=== PATIENT | female | born 1945 | race Caucasian/White ===

== ENCOUNTER 2017-10-22 12:27 | Emergency (ER) | payer MEDICARE ==
[~2017-10-22] VITALS: Ht 170.1 cm; Wt 130.6 kg
[~2017-10-22 12:27] MED LIST: ACETAMINOPHEN500 MG PO; AMLODIPINE BESYL5 MG PO; ASPIRIN81 M1 PO; ATIVAN0.5 MG PO; AZOR 5 MG-40 MG1 TAB PO; BACTROBAN2% TP; CIPROFLOXACIN500 MG PO; COMPAZINE SR10 MG PO; COUMADIN2 M1 PO; DICYCLOMINE HCL10 MG PO; DICYCLOMINE HYD10 MG PO; FAMOTIDINE40 MG PO; GLIPIZIDE5 M1 PO; GLIPIZIDE5 MG PO; LOMOTIL 0.025 M1 TA1 PO; LOMOTIL 0.025 M1 TAB PO; LOSARTAN POTAS100 M1 PO; LOVASTATIN20 MG PO; LYRICA75 MG PO; METANX 2.8 MG-21 TA1 PO; NEURONTIN300 MG PO; PANTOPRAZOLE SO40 MG PO; PERCOCET 325 MG1 TA2 PO; PREPLUS CA-FE1 EACH PO; PRILOSEC20 MG PO; PRILOSEC40 M1 PO; SYMBICORT1 AE1 INH; VICODIN ES 7501 TA1 PO; VITAMIN B125000 MCG SL; ZOFRAN4 MG PO
[2017-10-22] MEDS ORDERED: NORCO 10-325 T1 EACH PO (14:55)
== END 2017-10-22 15:00 | disposition home or self-care (01) ==
LOC: ED 12:27
DX: S92.414A Nondisplaced fracture of proximal phalanx of right great toe, initial encounter for closed fracture (principal); S82.64XA Nondisplaced fracture of lateral malleolus of right fibula, initial encounter for closed fracture; Z88.0 Allergy status to penicillin; Z88.1 Allergy status to other antibiotic agents; Z88.8 Allergy status to other drugs, medicaments and biological substances; Z79.899 Other long term (current) drug therapy; Z79.82 Long term (current) use of aspirin; W01.198A Fall on same level from slipping, tripping and stumbling with subsequent striking against other object, initial encounter; Y93.89 Activity, other specified; Y92.89 Other specified places as the place of occurrence of the external cause; Y99.8 Other external cause status

== ENCOUNTER → 2017-10-26 | Outpatient (CLI) | payer MEDICARE ==
[~2017-10-26] MED LIST changes: +NORCO 10-325 T1 EACH PO
== END | disposition home or self-care (01) ==
LOC: CANPRECLI → ORTHO 02:07
DX: M89.8X6 Other specified disorders of bone, lower leg (principal)

== ENCOUNTER → 2017-11-10 | Outpatient (CLI) | payer MEDICARE | END | disposition home or self-care (01) | LOC: ORTHO 01:28 | DX: S82.831D Other fracture of upper and lower end of right fibula, subsequent encounter for closed fracture with routine healing (principal); S92.491D Other fracture of right great toe, subsequent encounter for fracture with routine healing; X58.XXXD Exposure to other specified factors, subsequent encounter ==

== ENCOUNTER 2017-12-02 19:40 | Emergency (ER) | payer MEDICARE ==
[~2017-12-02] VITALS: Ht 170.1 cm; Wt 130.6 kg
[2017-12-02] MEDS ORDERED: VITAMIN D5000 UNI1 PO (20:02)
== END 2017-12-02 23:39 | disposition home or self-care (01) ==
LOC: ED 19:40
DX: R22.41 Localized swelling, mass and lump, right lower limb (principal); M79.89 Other specified soft tissue disorders; Z98.890 Other specified postprocedural states; Z79.899 Other long term (current) drug therapy; Z79.82 Long term (current) use of aspirin; Z88.8 Allergy status to other drugs, medicaments and biological substances; Z88.0 Allergy status to penicillin; Z88.6 Allergy status to analgesic agent; Z88.1 Allergy status to other antibiotic agents

== ENCOUNTER → 2017-12-09 | Outpatient (CLI) | payer MEDICARE ==
[~2017-12-09] MED LIST changes: +VITAMIN D5000 UNI1 PO
== END | disposition home or self-care (01) ==
LOC: ORTHO 04:30
DX: S82.831D Other fracture of upper and lower end of right fibula, subsequent encounter for closed fracture with routine healing (principal); M25.871 Other specified joint disorders, right ankle and foot; X58.XXXD Exposure to other specified factors, subsequent encounter

== ENCOUNTER → 2018-01-07 | Outpatient (CLI) | payer MEDICARE | END | disposition home or self-care (01) | LOC: ORTHO 01:38 | DX: Z47.89 Encounter for other orthopedic aftercare (principal); S82.491D Other fracture of shaft of right fibula, subsequent encounter for closed fracture with routine healing; X58.XXXD Exposure to other specified factors, subsequent encounter ==

== ENCOUNTER → 2018-02-18 | Outpatient (CLI) | payer MEDICARE | END | disposition home or self-care (01) | LOC: RAD 11:21 | DX: Z47.89 Encounter for other orthopedic aftercare (principal); S92.411D Displaced fracture of proximal phalanx of right great toe, subsequent encounter for fracture with routine healing; X58.XXXD Exposure to other specified factors, subsequent encounter; Z91.81 History of falling ==

== ENCOUNTER → 2018-05-02 | Outpatient (CLI) | payer MEDICARE | END | disposition home or self-care (01) | LOC: RAD 13:00 | DX: Z13.820 Encounter for screening for osteoporosis (principal); E55.9 Vitamin D deficiency, unspecified; K58.9 Irritable bowel syndrome, unspecified; Z78.0 Asymptomatic menopausal state ==

== ENCOUNTER → 2018-09-07 | Outpatient (CLI) | payer MEDICARE | END | disposition home or self-care (01) | LOC: CARD 09:28 | DX: R01.1 Cardiac murmur, unspecified (principal) ==

== ENCOUNTER 2019-10-31 15:43 | Inpatient (IN) | payer MEDICARE ==
[~2019-10-31] VITALS: Ht 162.6 cm; Wt 127.5 kg
[~2019-10-31 15:43] MED LIST changes: -CENTRUM SILVER1 EAC1 PO; -COZAAR100 MG PO; -DOXYCYCLINE100 M3 PO; -FISH OIL 1,0001 EAC4 PO; -HYDROXYCHLOROQ200 M1 PO; -NORVASC10 MG PO; -SYMB160 INH; -TAMIFLU 75MG CA75 MG PO; -VENT7GM INH
[2019-10-31 15:51] VITALS: BP 151/58
[2019-10-31 16:48] LABS: BASO % 0.5 % (0.0-1.0); EOS % 0.5 % (1.0-4.0); HEMATOCRIT 42.7 % (37.0-47.0); LYMPH # 1.7 10*3/uL (1.3-4.4); LYMPH % 20.4 % (27.0-41.0); MEAN CELL VOLUME 95.1 fl (81.0-99.0); MEAN CORPUSCULAR HGB 31.2 pg (27.0-31.0); MEAN CORPUSCULAR HGB CONC 32.8 g/dl (33.0-37.0); MEAN PLATELET VOLUME 10.1 fl (9.6-12.3); MONO # 1.1 10*3/uL (0.1-1.0); NEUT # 5.5 10*3/uL (2.3-7.9); NEUT % 65.5 % (47.0-73.0); PLATELET COUNT AUTOMATED 268 10*3/uL (130-400); RED BLOOD COUNT 4.49 10*6/uL (4.10-5.10); RED CELL DISTRI WIDTH 14.7 % (0-14.5); WHITE BLOOD COUNT 8.4 10*3/uL (4.8-10.8)
[2019-10-31 16:57] LABS: ACT PARTIAL THROMBO TIME 22.8 SECONDS (20.0-32.1)
[2019-10-31 17:05] LABS: ALBUMIN 3.1 gm/dl (3.1-4.5); ALKALINE PHOSPHATASE 102 U/L (45-117); BUN 17 mg/dl (7-24); CHLORIDE 103 mmol/L (98-107); POTASSIUM 4.2 mmol/L (3.5-5.1); SGOT/AST 15 IU/L (3-35); SGPT/ALT 19 U/L (12-78); SODIUM 137 mmol/L (136-145); TOTAL PROTEIN 7.5 gm/dL (6.4-8.2); TROPONIN I < 0.015 ng/ml (<0.045)
--- NOTE | 2019-10-31 18:24 | NUR ---
AWAITING TO HAVE CT SCAN BEFORE ADMISSION TO FLOOR
--- NOTE | 2019-10-31 18:56 | NUR ---
PT AT THIS TIME STATES SHE FEELS TIRED PT IS NO LONGER NAUSEATED AFTER CONSUMING SMALL AMOUNT OF CHICKEN BROTH PT STATES STILL HAS PAIN BEHIND EYES ESPECIALLY UPON COUGH AND CHEST DISCOMFORT
[2019-10-31 19:49] VITALS: BP 156/51
--- NOTE | 2019-10-31 19:50 | NUR ---
REPORT RECEIVED FROM DEB. PT TO BE ADMITTED UPSTAIRS TO ROOM 508--RALF GARCIA RN
--- NOTE | 2019-10-31 20:13 | NUR ---
PT TRANSFERRED TO 5TH FLOOR VIA FLOAT NURSE ELICIA.PT MAINTAINED IN RESP PRECAUTIONS.---RALF GARCIA RN
[2019-10-31 20:15] VITALS: BP 164/58
--- NOTE | 2019-10-31 20:15 | NUR ---
A 74, admitted to 5E, under the services of ROSALIND Carter DO with a diagnosis of SEPSIS, PNUEMONIA, SWELLING OF THIGH. Chief complaint is RESPIRATORY ILLNESS. Patient arrived via stretcher from ER. Monitor applied. Initial assessment completed. Vital signs taken and recorded. ROSALIND CARTER DO notified of admission to the unit. Orders received. See assessment for past medical history, medications and allergies. Patient and/or family oriented to unit. visitation policy reviewed. Clothing/patient valuable form completed. LENIN GIRON
[2019-10-31] MEDS ORDERED: COZAAR100 MG PO (20:58)
[2019-10-31] MEDS ORDERED: FISH OIL 1,0001 EAC4 PO (20:58)
[2019-10-31] MEDS ORDERED: CENTRUM SILVER1 EAC1 PO (20:59)
[2019-10-31] MEDS ORDERED: SYMB160 INH (20:59)
[2019-10-31] MEDS ORDERED: NORVASC10 MG PO (20:59)
[2019-11-01] VITALS: BP 112/68
[2019-11-01 06:50] LABS: BASO % 0.5 % (0.0-1.0); EOS # 0.1 10*3/uL (0.0-0.4); EOS % 0.8 % (1.0-4.0); HEMATOCRIT 40.2 % (37.0-47.0); LYMPH # 1.2 10*3/uL (1.3-4.4); LYMPH % 16.1 % (27.0-41.0); MEAN CELL VOLUME 96.2 fl (81.0-99.0); MEAN CORPUSCULAR HGB 30.9 pg (27.0-31.0); MEAN CORPUSCULAR HGB CONC 32.1 g/dl (33.0-37.0); MEAN PLATELET VOLUME 10.5 fl (9.6-12.3); MONO % 12.9 % (3.0-9.0); NEUT # 5.3 10*3/uL (2.3-7.9); NEUT % 69.4 % (47.0-73.0); PLATELET COUNT AUTOMATED 223 10*3/uL (130-400); RED BLOOD COUNT 4.18 10*6/uL (4.10-5.10); RED CELL DISTRI WIDTH 14.6 % (0-14.5); WHITE BLOOD COUNT 7.7 10*3/uL (4.8-10.8)
[2019-11-01 07:27] LABS: ALBUMIN 2.6 gm/dl (3.1-4.5); ALKALINE PHOSPHATASE 86 U/L (45-117); BUN 13 mg/dl (7-24); CHLORIDE 103 mmol/L (98-107); CHOLESTEROL 121 mg/dL (<200); CREATININE 0.73 mg/dL (0.55-1.02); HDL CHOLESTEROL 56 mg/dl (40-60); LDL CHOLESTEROL 51 mg/dL (9-159); POTASSIUM 3.9 mmol/L (3.5-5.1); SGOT/AST 10 IU/L (3-35); SGPT/ALT 17 U/L (12-78); SODIUM 135 mmol/L (136-145); TOTAL PROTEIN 6.6 gm/dL (6.4-8.2); TRIGLYCERIDES 69 mg/dl (<150); VLDL CHOLESTEROL 14 mg/dL (6-40)
--- NOTE | 2019-11-01 07:43 | NUR ---
24 HR. CHART CHECK COMPLETE.
[2019-11-01 08:00] VITALS: BP 126/54
--- NOTE | 2019-11-01 08:40 | NUR ---
SPEECH PATHOLOGY Nursing screen completed. Patient admitted with sepsis and pneumonia. There are no reports of dysphagia however this dept. will be available should future needs arise. FLACA REGALADO [facility] DOT[facility]
--- NOTE | 2019-11-01 10:49 | NUR ---
Roll Winder in to talk to patient. Patient states lives at HOME with . There are 2 steps in the home. Physician: Unique SARAH [facility] Home health services: NONE Patient's level of ADLs: INDEPENDENT Patient has working utilities: YES DME: NONE AT THIS TIME, STATES SHE USED TO HAVE O2 FOR NIGHT BUT DOES NOT HAVE IT NOW Follow-up physician's appointment after d/c: WILL BE MADE BY HOSPITALIST NURSE DIRECTOR ON DISCHARGE Does patient want to access PORTAL?: NO Discharge plan PT STATES SHE LIVES AT HOME WITH HER AND IS INDEPENDENT IN HER CARE. DENIES SHE WILL HAVE ANY NEEDS WHEN DISCHARGED. PT PLANS TO RETURN HOME WHEN MEDICALLY STABLE. WILL CONTINUE TO FOLLOW. PT STATES WILL TAKE HER HOME WHEN DISCHARGED. . FUAD MALCOLM
[2019-11-01 12:00] VITALS: BP 127/52
[2019-11-01 16:00] VITALS: BP 125/46
[2019-11-01 20:00] VITALS: BP 136/55
--- NOTE | 2019-11-01 20:23 | NUR ---
PT MEDICATED WITH PRN TYLENOL FOR TEMP OF 101.0. WILL RECHECK. PT RELAXING IN BED. RESPS EASY AND REGULAR. 3L O2 IN PLACE. NO COMPLAINTS. ASSESSMENT COMPLETE. CALL LIGHT IN REACH. WILL CONTINUE TO MONITOR.
--- NOTE | 2019-11-01 22:00 | NUR ---
WENT INTO PTS ROOM TO TEST HER FOR THE FLU PER . PT STATED THAT SHE WAS ALREADY TESTED FOR THE FLU IN THE ER.
[2019-11-02] VITALS: BP 123/56
--- NOTE | 2019-11-02 | NUR ---
CHECKED AND PT WAS NOT TESTED FOR THE FLU. WILL TEST PT FOR FLU IN AM.
--- NOTE | 2019-11-02 03:39 | NUR ---
PT SLEEPING PER SURVEILLANCE CAMERA.
--- NOTE | 2019-11-02 03:40 | NUR ---
24 HR chart check completed.
[2019-11-02 08:00] VITALS: BP 126/70
--- NOTE | 2019-11-02 09:00 | NUR ---
PT RESTING IN BED. RESP-EASY AND REGULAR. TOLERATED ROUTINE MED WITH NO PROBLEM. PT REQUESTING LOZENGER, MEDICATED WITH CEPACOL PO, SEE EMAR. CALL LIGHT IN REACH. SEE SHIFT ASSESSMENT.
--- NOTE | 2019-11-02 10:32 | NUR ---
[facility] DOES NOT TAKE PT INSURANCE, CALLED AND THEY DO TAKE INSURANCE BUT STATE THEY ARE UNABLE TO TAKE PT UNTIL HIS COVID-19 RESULTS ARE BACK DUE TO SHORTAGE OF PPE. CALLED [facility] AND LEFT MESSAGE FOR THEM TO CALL ME BACK. WAITING FOR RETURN CALL.
--- NOTE | 2019-11-02 11:08 | NUR ---
[facility] CALLED BACK AND STATES IF PT MEETS [facility] FOR ADMISSION THEY WOULD BE ABLE TO SEE PT. REFERRAL FAXED TO [facility].
--- NOTE | 2019-11-02 12:45 | NUR ---
PT WAS ASSESSED FOR HOME OXYGEN. PT QUALIFIED PT AT REST SPO2 94% RA, HR 84, RR 18, B/P 123/56 PT AMBULATED SPO2 87-88% RA PLACED PT ON 2LNC, SPO2 88-89% INCREASED TO 33NC AT REST SPO2 90-91% 3LNC RN NOTIFIED NOTIFIED
--- NOTE | 2019-11-02 13:50 | NUR ---
DR. ESPINOSA CALLED ORDER TAKEN AND REVIEWED.
[2019-11-02] MEDS ORDERED: TAMIFLU 75MG CA75 MG PO (13:52)
[2019-11-02] MEDS ORDERED: VENT7GM INH (13:52)
[2019-11-02] MEDS ORDERED: DOXYCYCLINE100 M3 PO (13:52)
[2019-11-02] MEDS ORDERED: HYDROXYCHLOROQ200 M1 PO (13:53)
--- NOTE | 2019-11-02 15:29 | NUR ---
PHYSICAL THERAPY Screen recieved on 11/01/19. Spoke nsg supervisor multifocal lens Chirag fontana and sherrell on 5th floor and per discussion at this time to defer any PT/therapy intervention due to monitoring for COVID-19, thank you. Roseann Koenig PT
--- NOTE | 2019-11-02 15:30 | NUR ---
Nursing screen received on 10/31/2019. OTR spoke with nursing supervisor cooler service, Chirag, about nursing screens and evaluations on the fifth floor. Per discussion, at this time defer OT/therapy intervention due to monitoring for COVID-19. Thank you. Allie Aldridge, OTR/L
--- NOTE | 2019-11-02 18:25 | NUR ---
Discharge instructions reviewed with patient/family. Patient receptive and verbalizes understanding. Follow-up care arranged. Written instructions given to patient/family. HEPLOCK REMOVED 2X2 APPLIED. MONITOR REMOVED. ESCORTED VIA WHEELCHAIR FOR DISCHARGE. DELTA COHEN
== END 2019-11-02 18:25 | disposition home or self-care (01) | DRG 871 ==
LOC: ED 15:43 → EDHOLD 16:58 → 5E 16:58 → EDHOLD 17:12 → 5E 18:45
PROVIDERS: Physician Assistant; Student in an Organized Health Care Education/Training Program; ADMIT Family Medicine
DX: A41.9 Sepsis, unspecified organism (principal); E43 Unspecified severe protein-calorie malnutrition; J12.9 Viral pneumonia, unspecified; E87.1 Hypo-osmolality and hyponatremia; Z68.41 Body mass index [BMI] 40.0-44.9, adult; B34.9 Viral infection, unspecified; R19.7 Diarrhea, unspecified; E78.5 Hyperlipidemia, unspecified; E11.40 Type 2 diabetes mellitus with diabetic neuropathy, unspecified; E53.8 Deficiency of other specified B group vitamins; E11.42 Type 2 diabetes mellitus with diabetic polyneuropathy; K21.9 Gastro-esophageal reflux disease without esophagitis; Z85.118 Personal history of other malignant neoplasm of bronchus and lung; Z88.0 Allergy status to penicillin; Z88.1 Allergy status to other antibiotic agents; Z88.8 Allergy status to other drugs, medicaments and biological substances; Z79.899 Other long term (current) drug therapy; Z79.82 Long term (current) use of aspirin; Z20.828 Contact with and (suspected) exposure to other viral communicable diseases

== ENCOUNTER → 2019-10-31 | Outpatient (CLI) | payer MEDICARE ==
[~2019-10-31] MED LIST changes: +CENTRUM SILVER1 EAC1 PO; +COZAAR100 MG PO; +DOXYCYCLINE100 M3 PO; +FISH OIL 1,0001 EAC4 PO; +HYDROXYCHLOROQ200 M1 PO; +NORVASC10 MG PO; +SYMB160 INH; +TAMIFLU 75MG CA75 MG PO; +VENT7GM INH
== END | disposition home or self-care (01) ==
LOC: RESCLI 14:12
DX: R06.02 Shortness of breath (principal); E78.00 Pure hypercholesterolemia, unspecified; Z85.118 Personal history of other malignant neoplasm of bronchus and lung; Z98.890 Other specified postprocedural states; Z79.899 Other long term (current) drug therapy

== ENCOUNTER → 2020-02-26 | Outpatient (CLI) | payer MEDICARE ==
[~2020-02-26] MED LIST changes: +CENTRUM SILVER1 EAC1 PO; +COZAAR100 MG PO; +DOXYCYCLINE100 M3 PO; +FISH OIL 1,0001 EAC4 PO; +HYDROXYCHLOROQ200 M1 PO; +NORVASC10 MG PO; +SYMB160 INH; +TAMIFLU 75MG CA75 MG PO; +VENT7GM INH
== END | disposition home or self-care (01) ==
LOC: RESCLI 03:11
DX: E11.65 Type 2 diabetes mellitus with hyperglycemia (principal); I71.4 Abdominal aortic aneurysm, without rupture; I10 Essential (primary) hypertension; J44.9 Chronic obstructive pulmonary disease, unspecified; E55.9 Vitamin D deficiency, unspecified; E78.5 Hyperlipidemia, unspecified; M81.0 Age-related osteoporosis without current pathological fracture; E78.00 Pure hypercholesterolemia, unspecified; Z79.4 Long term (current) use of insulin; Z79.899 Other long term (current) drug therapy; Z79.82 Long term (current) use of aspirin; Z85.118 Personal history of other malignant neoplasm of bronchus and lung; Z95.828 Presence of other vascular implants and grafts; Z98.890 Other specified postprocedural states; Z88.8 Allergy status to other drugs, medicaments and biological substances

== ENCOUNTER → 2020-07-15 | Outpatient (CLI) | payer MEDICARE ==
[2020-07-15 17:58] LABS: BASO # 0.1 10*3/uL (0.0-0.1); BASO % 0.6 % (0.0-1.0); EOS # 0.2 10*3/uL (0.0-0.4); EOS % 2.2 % (1.0-4.0); LYMPH # 2.8 10*3/uL (1.3-4.4); LYMPH % 34.2 % (27.0-41.0); MEAN CELL VOLUME 94.8 fl (81.0-99.0); MEAN CORPUSCULAR HGB 30.6 pg (27.0-31.0); MEAN CORPUSCULAR HGB CONC 32.3 g/dl (33.0-37.0); MEAN PLATELET VOLUME 9.6 fl (9.6-12.3); MONO # 0.9 10*3/uL (0.1-1.0); MONO % 10.9 % (3.0-9.0); NEUT # 4.2 10*3/uL (2.3-7.9); PLATELET COUNT AUTOMATED 269 10*3/uL (130-400); RED BLOOD COUNT 4.64 10*6/uL (4.10-5.10); RED CELL DISTRI WIDTH 14.8 % (0-14.5); WHITE BLOOD COUNT 8.1 10*3/uL (4.8-10.8)
[2020-07-17 00:06] LABS: B PERTUSSIS IGA AB 1.3 index (0.0-0.9); B PERTUSSIS IGG AB <0.95 index (0.00-0.94); B PERTUSSIS IGM AB <1.0 index (0.0-0.9)
== END | disposition home or self-care (01) ==
LOC: LAB 16:54 → COVID19 16:54
PROVIDERS: ATTEND Nurse Practitioner Primary Care
DX: J44.1 Chronic obstructive pulmonary disease with (acute) exacerbation (principal); R05 Cough; R06.02 Shortness of breath; Z20.828 Contact with and (suspected) exposure to other viral communicable diseases

== ENCOUNTER → 2020-12-04 | Outpatient (CLI) | payer MEDICARE ==
[2020-12-04 14:28] LABS: BUN 21 mg/dl (7-24); CHLORIDE 105 mmol/L (98-107); CHOLESTEROL 193 mg/dL (<200); CREATININE 0.89 mg/dL (0.55-1.02); HDL CHOLESTEROL 65 mg/dl (40-60); LDL CHOLESTEROL 96 mg/dL (9-159); POTASSIUM 4.4 mmol/L (3.5-5.1); SODIUM 136 mmol/L (136-145); TRIGLYCERIDES 160 mg/dl (<150); VLDL CHOLESTEROL 32 mg/dL (6-40)
== END | disposition home or self-care (01) ==
LOC: LAB 12:46
PROVIDERS: ATTEND Nurse Practitioner Primary Care
DX: M17.11 Unilateral primary osteoarthritis, right knee (principal); E11.65 Type 2 diabetes mellitus with hyperglycemia; M76.51 Patellar tendinitis, right knee; M25.861 Other specified joint disorders, right knee

== ENCOUNTER 2020-12-29 10:19 | Emergency (ER) | payer MEDICARE ==
[~2020-12-29] VITALS: Wt 127.9 kg
[2020-12-29] MEDS ORDERED: TYLENOL325 M1 PO (10:41)
[2020-12-29] MEDS ORDERED: CLINDAMYCIN HC300 MG PO (10:41)
== END 2020-12-29 11:43 | disposition home or self-care (01) ==
LOC: ED 10:19
DX: K02.9 Dental caries, unspecified (principal); K21.9 Gastro-esophageal reflux disease without esophagitis; E78.5 Hyperlipidemia, unspecified; E11.40 Type 2 diabetes mellitus with diabetic neuropathy, unspecified; Z88.1 Allergy status to other antibiotic agents; Z88.0 Allergy status to penicillin; Z88.8 Allergy status to other drugs, medicaments and biological substances; Z79.899 Other long term (current) drug therapy; Z79.2 Long term (current) use of antibiotics; Z79.82 Long term (current) use of aspirin; Z85.118 Personal history of other malignant neoplasm of bronchus and lung

== ENCOUNTER → 2021-02-26 | Outpatient (CLI) | payer MEDICARE ==
[~2021-02-26] MED LIST changes: +CLINDAMYCIN HC300 MG PO; +TYLENOL325 M1 PO
== END | disposition home or self-care (01) ==
LOC: US 10:10
PROVIDERS: ATTEND Orthopaedic Surgery
DX: M71.21 Synovial cyst of popliteal space [Baker], right knee (principal); M79.661 Pain in right lower leg

== ENCOUNTER → 2021-06-23 | Outpatient (CLI) | payer MEDICARE | END | disposition home or self-care (01) | LOC: RAD 06-19 13:30 | PROVIDERS: ATTEND Nurse Practitioner Primary Care | DX: M85.851 Other specified disorders of bone density and structure, right thigh (principal); Z78.0 Asymptomatic menopausal state ==

== ENCOUNTER → 2021-09-05 | Outpatient (CLI) | payer MEDICARE | END | disposition home or self-care (01) | LOC: US 07:19 | PROVIDERS: ATTEND Nurse Practitioner Family | DX: R10.31 Right lower quadrant pain (principal); Z86.718 Personal history of other venous thrombosis and embolism ==

== ENCOUNTER → 2021-09-23 | Outpatient (CLI) | payer MEDICARE ==
[2021-09-23 10:19] LABS: BUN 26 mg/dl (7-24); CHLORIDE 104 mmol/L (98-107); CREATININE 1.06 mg/dL (0.55-1.02); POTASSIUM 4.1 mmol/L (3.5-5.1); SODIUM 136 mmol/L (136-145)
== END | disposition home or self-care (01) ==
LOC: LAB 09:09
PROVIDERS: ATTEND Nurse Practitioner Primary Care
DX: I10 Essential (primary) hypertension (principal)

== ENCOUNTER → 2021-09-29 | Outpatient (CLI) | payer MEDICARE | END | disposition home or self-care (01) | LOC: CT 09-24 00:14 | PROVIDERS: ATTEND Nurse Practitioner Primary Care | DX: K42.9 Umbilical hernia without obstruction or gangrene (principal); J98.11 Atelectasis; I70.0 Atherosclerosis of aorta ==

== ENCOUNTER → 2021-10-03 | Outpatient (CLI) | payer MEDICARE | END | disposition home or self-care (01) | LOC: RAD 13:30 | PROVIDERS: ATTEND Nurse Practitioner Primary Care | DX: M54.41 Lumbago with sciatica, right side (principal); M25.551 Pain in right hip; G89.29 Other chronic pain ==

== ENCOUNTER → 2021-12-12 | Outpatient (CLI) | payer MEDICARE | END | disposition home or self-care (01) | LOC: CT 14:00 | PROVIDERS: ATTEND Nurse Practitioner Primary Care | DX: C34.92 Malignant neoplasm of unspecified part of left bronchus or lung (principal); I25.10 Atherosclerotic heart disease of native coronary artery without angina pectoris; J43.9 Emphysema, unspecified ==

== ENCOUNTER → 2022-03-25 | Outpatient (CLI) | payer MEDICARE | END | disposition home or self-care (01) | LOC: CARD 08:30 | PROVIDERS: ATTEND Physician Assistant | DX: I35.8 Other nonrheumatic aortic valve disorders (principal) ==

== ENCOUNTER → 2022-04-22 | Outpatient (CLI) | payer MEDICARE ==
[~2022-04-22] MED LIST changes: +CALCIUM 600+D1 EAC4 PO; +JANUVIA25 MG PO
== END | disposition home or self-care (01) ==
LOC: CARD 04:24
PROVIDERS: ATTEND Internal Medicine Cardiovascular Disease
DX: R07.2 Precordial pain (principal); R06.00 Dyspnea, unspecified; R42 Dizziness and giddiness

== ENCOUNTER 2022-05-08 22:47 | Emergency (ER) | payer MEDICARE ==
[~2022-05-08 22:47] MED LIST changes: +XARE15TA PO; +XARELTO20 M1 PO
== END 2022-05-09 01:03 | disposition home or self-care (01) ==
LOC: ED 22:47
DX: M79.89 Other specified soft tissue disorders (principal); M79.604 Pain in right leg; L53.9 Erythematous condition, unspecified; E66.9 Obesity, unspecified; Z86.718 Personal history of other venous thrombosis and embolism; Z88.1 Allergy status to other antibiotic agents; Z88.0 Allergy status to penicillin; Z88.8 Allergy status to other drugs, medicaments and biological substances; Z79.899 Other long term (current) drug therapy; Z98.61 Coronary angioplasty status; Z87.891 Personal history of nicotine dependence; Z68.30 Body mass index [BMI] 30.0-30.9, adult

== ENCOUNTER → 2022-06-15 | Outpatient (CLI) | payer MEDICARE | END | disposition home or self-care (01) | LOC: RESCLI 02:36 | PROVIDERS: ATTEND Internal Medicine | DX: E11.40 Type 2 diabetes mellitus with diabetic neuropathy, unspecified (principal); I25.10 Atherosclerotic heart disease of native coronary artery without angina pectoris; E78.00 Pure hypercholesterolemia, unspecified; E78.5 Hyperlipidemia, unspecified; J44.9 Chronic obstructive pulmonary disease, unspecified; M54.31 Sciatica, right side; I82.431 Acute embolism and thrombosis of right popliteal vein; E66.01 Morbid (severe) obesity due to excess calories; E03.9 Hypothyroidism, unspecified; M17.11 Unilateral primary osteoarthritis, right knee; G89.29 Other chronic pain; J44.1 Chronic obstructive pulmonary disease with (acute) exacerbation; E55.9 Vitamin D deficiency, unspecified; E11.9 Type 2 diabetes mellitus without complications; I10 Essential (primary) hypertension; G47.33 Obstructive sleep apnea (adult) (pediatric); Z82.49 Family history of ischemic heart disease and other diseases of the circulatory system; Z87.891 Personal history of nicotine dependence; Z88.1 Allergy status to other antibiotic agents; Z88.8 Allergy status to other drugs, medicaments and biological substances; Z98.890 Other specified postprocedural states; Z79.01 Long term (current) use of anticoagulants; Z79.899 Other long term (current) drug therapy ==

== ENCOUNTER → 2022-11-17 | Outpatient (CLI) | payer MEDICARE | END | disposition home or self-care (01) | LOC: RESCLI 01:40 | PROVIDERS: ATTEND Family Medicine | DX: I12.9 Hypertensive chronic kidney disease with stage 1 through stage 4 chronic kidney disease, or unspecified chronic kidney disease (principal); E11.22 Type 2 diabetes mellitus with diabetic chronic kidney disease; N18.9 Chronic kidney disease, unspecified; C34.90 Malignant neoplasm of unspecified part of unspecified bronchus or lung; E55.9 Vitamin D deficiency, unspecified; E03.9 Hypothyroidism, unspecified; G89.29 Other chronic pain; J44.9 Chronic obstructive pulmonary disease, unspecified; I82.431 Acute embolism and thrombosis of right popliteal vein; M54.31 Sciatica, right side; E11.40 Type 2 diabetes mellitus with diabetic neuropathy, unspecified; G47.33 Obstructive sleep apnea (adult) (pediatric); I73.9 Peripheral vascular disease, unspecified; I25.10 Atherosclerotic heart disease of native coronary artery without angina pectoris; E78.5 Hyperlipidemia, unspecified; E78.00 Pure hypercholesterolemia, unspecified; M19.90 Unspecified osteoarthritis, unspecified site; Z79.899 Other long term (current) drug therapy; Z88.8 Allergy status to other drugs, medicaments and biological substances; Z88.0 Allergy status to penicillin ==

== ENCOUNTER 2022-11-30 19:16 | Emergency (ER) | payer MEDICARE ==
[~2022-11-30] VITALS: Ht 165.1 cm; Wt 127.0 kg
== END 2022-11-30 21:00 | disposition home or self-care (01) ==
LOC: ED 19:16
DX: M25.532 Pain in left wrist (principal); I10 Essential (primary) hypertension; F41.9 Anxiety disorder, unspecified; F32.A Depression, unspecified; Z86.73 Personal history of transient ischemic attack (TIA), and cerebral infarction without residual deficits; E78.00 Pure hypercholesterolemia, unspecified; Z88.0 Allergy status to penicillin; Z88.1 Allergy status to other antibiotic agents; Z88.8 Allergy status to other drugs, medicaments and biological substances; Z98.890 Other specified postprocedural states; Z87.891 Personal history of nicotine dependence

== ENCOUNTER → 2022-12-23 | Outpatient (CLI) | payer MEDICARE | END | disposition home or self-care (01) | LOC: CT 12-22 10:00 | PROVIDERS: ATTEND Physician Assistant | DX: Z12.2 Encounter for screening for malignant neoplasm of respiratory organs (principal); J43.2 Centrilobular emphysema; I25.10 Atherosclerotic heart disease of native coronary artery without angina pectoris; I34.81 Nonrheumatic mitral (valve) annulus calcification; F17.211 Nicotine dependence, cigarettes, in remission ==

== ENCOUNTER → 2023-04-21 | Outpatient (CLI) | payer MEDICARE | END | disposition home or self-care (01) | LOC: RESCLI 09:57 | PROVIDERS: ATTEND Student in an Organized Health Care Education/Training Program | DX: I12.9 Hypertensive chronic kidney disease with stage 1 through stage 4 chronic kidney disease, or unspecified chronic kidney disease (principal); E11.22 Type 2 diabetes mellitus with diabetic chronic kidney disease; N18.9 Chronic kidney disease, unspecified; C34.92 Malignant neoplasm of unspecified part of left bronchus or lung; I82.91 Chronic embolism and thrombosis of unspecified vein; E11.65 Type 2 diabetes mellitus with hyperglycemia; J44.1 Chronic obstructive pulmonary disease with (acute) exacerbation; J44.9 Chronic obstructive pulmonary disease, unspecified; E78.5 Hyperlipidemia, unspecified; E03.9 Hypothyroidism, unspecified; M17.11 Unilateral primary osteoarthritis, right knee; I82.431 Acute embolism and thrombosis of right popliteal vein; E66.01 Morbid (severe) obesity due to excess calories; E11.40 Type 2 diabetes mellitus with diabetic neuropathy, unspecified; I25.10 Atherosclerotic heart disease of native coronary artery without angina pectoris; I73.9 Peripheral vascular disease, unspecified; G47.33 Obstructive sleep apnea (adult) (pediatric); F17.211 Nicotine dependence, cigarettes, in remission; Z98.890 Other specified postprocedural states; Z82.49 Family history of ischemic heart disease and other diseases of the circulatory system; Z88.0 Allergy status to penicillin; Z88.8 Allergy status to other drugs, medicaments and biological substances; Z79.899 Other long term (current) drug therapy ==

== ENCOUNTER 2023-08-14 21:19 | Emergency (ER) | payer MEDICARE ==
[~2023-08-14] VITALS: Ht 167.6 cm; Wt 144.7 kg
[2023-08-14 22:49] LABS: BILIRUBIN Negative (Negative); BLOOD Negative (Negative); CLARITY Cloudy (Clear); COLOR Yellow (Yellow); GLUCOSE Negative (Negative); KETONE Trace (Negative); LEUKO ESTERASE 2+ (Negative); NITRITE Negative (Negative); PH 6.5 (4.5-8.0); SPECIFIC GRAVITY 1.025 (1.001-1.030)
[2023-08-14 23:33] LABS: EPITHELIAL CELLS TNTC
[2023-08-14 23:34] LABS: BACTERIA 2+; WBC 41-50 wbc/hpf (0-5)
[2023-08-14 23:40] LABS: BASO % 0.4 % (0.0-1.0); EOS # 0.1 10*3/uL (0.0-0.4); HEMATOCRIT 35.5 % (37.0-47.0); LYMPH # 1.3 10*3/uL (1.3-4.4); LYMPH % 12.9 % (27.0-41.0); MEAN CELL VOLUME 103.2 fl (81.0-99.0); MEAN PLATELET VOLUME 9.9 fl (9.6-12.3); MONO % 10.1 % (3.0-9.0); NEUT # 7.3 10*3/uL (2.3-7.9); NEUT % 75.3 % (47.0-73.0); PLATELET COUNT AUTOMATED 211 10*3/uL (130-400); RED BLOOD COUNT 3.44 10*6/uL (4.10-5.10); RED CELL DISTRI WIDTH 15.9 % (0-14.5); WHITE BLOOD COUNT 9.7 10*3/uL (4.8-10.8)
[2023-08-14 23:52] LABS: ACT PARTIAL THROMBO TIME 21.6 SECONDS (20.0-32.1)
[2023-08-15 00:02] LABS: POTASSIUM 4.6 mmol/L (3.4-5.1); TOTAL PROTEIN 7.5 gm/dL (6.0-8.0)
[2023-08-15] MEDS ORDERED: VIBRAMYCIN100 MG PO (00:15)
== END 2023-08-15 02:04 | disposition home or self-care (01) ==
LOC: ED 21:19
PROVIDERS: Internal Medicine
DX: J18.9 Pneumonia, unspecified organism (principal); F41.9 Anxiety disorder, unspecified; F32.A Depression, unspecified; Z86.73 Personal history of transient ischemic attack (TIA), and cerebral infarction without residual deficits; E78.00 Pure hypercholesterolemia, unspecified; I10 Essential (primary) hypertension; Z53.29 Procedure and treatment not carried out because of patient's decision for other reasons; Z88.0 Allergy status to penicillin; Z88.8 Allergy status to other drugs, medicaments and biological substances; Z88.1 Allergy status to other antibiotic agents; Z98.890 Other specified postprocedural states; Z95.5 Presence of coronary angioplasty implant and graft; Z87.891 Personal history of nicotine dependence; Z20.822 Contact with and (suspected) exposure to COVID-19; Z79.899 Other long term (current) drug therapy

== ENCOUNTER 2023-09-06 14:53 | Emergency (ER) | payer MEDICARE ==
[~2023-09-06] VITALS: Ht 167.6 cm; Wt 143.3 kg
[~2023-09-06 14:53] MED LIST changes: +VIBRAMYCIN100 MG PO
[2023-09-06 15:44] LABS: BASO % 0.5 % (0.0-1.0); EOS # 0.2 10*3/uL (0.0-0.4); EOS % 2.6 % (1.0-4.0); HEMATOCRIT 36.4 % (37.0-47.0); LYMPH # 1.6 10*3/uL (1.3-4.4); MEAN CORPUSCULAR HGB 31.7 pg (27.0-31.0); MEAN CORPUSCULAR HGB CONC 30.5 g/dl (33.0-37.0); MEAN PLATELET VOLUME 10.3 fl (9.6-12.3); MONO # 0.8 10*3/uL (0.1-1.0); MONO % 12.7 % (3.0-9.0); NEUT # 3.8 10*3/uL (2.3-7.9); PLATELET COUNT AUTOMATED 207 10*3/uL (130-400); RED CELL DISTRI WIDTH 15.3 % (0-14.5); WHITE BLOOD COUNT 6.5 10*3/uL (4.8-10.8)
[2023-09-06 16:00] LABS: ACT PARTIAL THROMBO TIME 30.1 SECONDS (20.0-32.1)
[2023-09-06 16:40] LABS: POTASSIUM 4.7 mmol/L (3.4-5.1); TOTAL PROTEIN 7.1 gm/dL (6.0-8.0)
== END 2023-09-06 18:15 | disposition home or self-care (01) ==
LOC: ED 14:53
PROVIDERS: Nurse Practitioner Family
DX: R10.13 Epigastric pain (principal); I10 Essential (primary) hypertension; E78.5 Hyperlipidemia, unspecified; E11.65 Type 2 diabetes mellitus with hyperglycemia; E11.40 Type 2 diabetes mellitus with diabetic neuropathy, unspecified; K21.9 Gastro-esophageal reflux disease without esophagitis; F41.9 Anxiety disorder, unspecified; F32.A Depression, unspecified; Z86.73 Personal history of transient ischemic attack (TIA), and cerebral infarction without residual deficits; E78.00 Pure hypercholesterolemia, unspecified; Z88.0 Allergy status to penicillin; Z88.1 Allergy status to other antibiotic agents; Z88.8 Allergy status to other drugs, medicaments and biological substances; Z86.718 Personal history of other venous thrombosis and embolism; Z98.890 Other specified postprocedural states; Z95.5 Presence of coronary angioplasty implant and graft; Z87.891 Personal history of nicotine dependence

== ENCOUNTER 2024-04-27 14:11 | Inpatient (IN) | payer MEDICARE ==
[~2024-04-27] VITALS: Ht 167.6 cm; Wt 141.6 kg
[2024-04-27] VITALS (7 sets, daily range): BP systolic 118–144; BP diastolic 28–60
[~2024-04-27 14:11] MED LIST changes: +FUROSEMIDE40 MG PO; +KLOR-CON 1010 ME1 PO; +LASIX20 MG PO; +PREDNISONE50 MG PO; +TOPROL XL50 M1 PO
[2024-04-27 15:09] LABS: ACT PARTIAL THROMBO TIME 27.1 SECONDS (20.0-32.1)
[2024-04-27 15:22] LABS: HEMATOCRIT 21.9 % (37.0-47.0); MEAN CELL VOLUME 97.8 fl (81.0-99.0); MEAN CORPUSCULAR HGB 29.9 pg (27.0-31.0); MEAN CORPUSCULAR HGB CONC 30.6 g/dl (33.0-37.0); MEAN PLATELET VOLUME 10.7 fl (9.6-12.3); NUCLEATED RED BLOOD CELL 0.4 % (0.0-0.0); PLATELET COUNT AUTOMATED 249 10*3/uL (130-400); POTASSIUM 4.8 mmol/L (3.4-5.1); RED BLOOD COUNT 2.24 10*6/uL (4.10-5.10); RED CELL DISTRI WIDTH 16.1 % (0-14.5); TOTAL PROTEIN 6.2 gm/dL (6.0-8.0); WHITE BLOOD COUNT 7.5 10*3/uL (4.8-10.8)
[2024-04-27 15:31] LABS: MANUAL DIFF REFLEX YES
[2024-04-27 16:34] LABS: BASOPHILS 1 % (0-1); OVALOCYTES FEW; PLATELET SUFFICIENCY NORMAL (NORMAL); POLYCHROMASIA SLIGHT; TOTAL CELLS COUNTED 100 #CELLS
[2024-04-27] MEDS ORDERED: ceFAZolin sodium/sodium chlor 10 ML IV ONE (16:40)
[2024-04-27] MEDS ORDERED: SODIUM CHLORIDE 0.9% 500 ML IV ONE (17:33)
[2024-04-27] MEDS ORDERED: ACETAMINOPHEN 325 MG TAB PO PRN (18:10)
[2024-04-27] MEDS ORDERED: BISACODYL 10 MG SUPP R PRN (18:10)
[2024-04-27] MEDS ORDERED: Magnesium Hydroxide 30 ML UDC PO PRN (18:10)
[2024-04-27] MEDS ORDERED: BISACODYL 5 MG TAB PO PRN (18:10)
[2024-04-27] MEDS ORDERED: Ondansetron Hydrochloride 4 MG/2 ML VIAL IV PRN (18:10)
[2024-04-27] MEDS ORDERED: ACETAMINOPHEN 650 MG SUPP R PRN (18:10)
[2024-04-27] MEDS ORDERED: DEXTROSE 10 % IN WATER 250 ML IV PRN (18:50)
[2024-04-27] MEDS ORDERED: POTASSIUM CHLO10 ME5 PO (18:52)
[2024-04-27] MEDS ORDERED: XARE20MG PO (18:56)
[2024-04-27] MEDS ORDERED: VENT7GM INH (18:59)
[2024-04-27] MEDS ORDERED: Peg Electrolyte Lavage Solut 4,000 ML BOT PO ONE (19:05)
[2024-04-27] MEDS ORDERED: INSULIN LISPRO 1 UNIT/0.01 ML SQ SCH (22:00)
[2024-04-28] VITALS (10 sets, daily range): BP systolic 100–154; BP diastolic 27–63
[2024-04-28 02:18] LABS: BASO % 0.5 % (0.0-1.0); EOS # 0.4 10*3/uL (0.0-0.4); HEMATOCRIT 24.9 % (37.0-47.0); LYMPH % 23.1 % (27.0-41.0); MEAN CELL VOLUME 98.4 fl (81.0-99.0); MEAN CORPUSCULAR HGB 29.2 pg (27.0-31.0); MEAN CORPUSCULAR HGB CONC 29.7 g/dl (33.0-37.0); MEAN PLATELET VOLUME 10.2 fl (9.6-12.3); MONO % 11.1 % (3.0-9.0); NEUT # 5.4 10*3/uL (2.3-7.9); NEUT % 61.1 % (47.0-73.0); NUCLEATED RED BLOOD CELL 0.3 % (0.0-0.0); PLATELET COUNT AUTOMATED 257 10*3/uL (130-400); RED BLOOD COUNT 2.53 10*6/uL (4.10-5.10); RED CELL DISTRI WIDTH 16.6 % (0-14.5); WHITE BLOOD COUNT 8.9 10*3/uL (4.8-10.8)
[2024-04-28] MEDS ORDERED: Pantoprazole Sodium 40 MG TAB PO SCH (06:00)
[2024-04-28] MEDS ORDERED: Pantoprazole Sodium 40 MG VIAL IV SCH (06:00)
[2024-04-28 06:13] LABS: POTASSIUM 4.4 mmol/L (3.4-5.1)
[2024-04-28 06:18] LABS: BASO % 0.3 % (0.0-1.0); EOS # 0.3 10*3/uL (0.0-0.4); EOS % 3.2 % (1.0-4.0); HEMATOCRIT 25.1 % (37.0-47.0); LYMPH # 1.9 10*3/uL (1.3-4.4); LYMPH % 22.3 % (27.0-41.0); MEAN CELL VOLUME 99.2 fl (81.0-99.0); MEAN CORPUSCULAR HGB 28.9 pg (27.0-31.0); MEAN CORPUSCULAR HGB CONC 29.1 g/dl (33.0-37.0); MEAN PLATELET VOLUME 10.3 fl (9.6-12.3); MONO # 0.9 10*3/uL (0.1-1.0); NEUT # 5.5 10*3/uL (2.3-7.9); NUCLEATED RED BLOOD CELL 0.3 % (0.0-0.0); PLATELET COUNT AUTOMATED 246 10*3/uL (130-400); RED BLOOD COUNT 2.53 10*6/uL (4.10-5.10); RED CELL DISTRI WIDTH 16.8 % (0-14.5); WHITE BLOOD COUNT 8.6 10*3/uL (4.8-10.8)
[2024-04-28 06:21] LABS: ACT PARTIAL THROMBO TIME 25.2 SECONDS (20.0-32.1)
[2024-04-28] MEDS ORDERED: SODIUM CHLORIDE 0.9% 1,000 ML IV ONE (08:12)
[2024-04-28] MEDS ORDERED: FUROSEMIDE 40 MG/4 ML VIAL IV SCH (10:00)
[2024-04-28] MEDS ORDERED: fentaNYL CITRATE 100 MCG/2 ML VIAL IV ONE (11:42)
[2024-04-28] MEDS ORDERED: PROPOFOL 200 MG/20 ML VIAL IV ONE (11:42)
[2024-04-28] MEDS ORDERED: Midazolam Hydrochloride 2 MG/2 ML VIAL IV ONE (11:42)
[2024-04-28] MEDS ORDERED: GABAPENTIN 300 MG CAP PO SCH ×2 (14:42→22:00)
[2024-04-29] VITALS: BP 155/49
[2024-04-29 08:00] VITALS: BP 136/36
[2024-04-29] MEDS ORDERED: GABAPENTIN 300 MG CAP PO SCH (10:00)
[2024-04-29] MEDS ORDERED: METOPROLOL SUCCINATE XR 50 MG TAB PO SCH (10:00)
[2024-04-29] MEDS ORDERED: Losartan Potassium 50 MG TAB PO SCH (10:00)
[2024-04-29 10:01] LABS: BASO % 0.5 % (0.0-1.0); EOS # 0.2 10*3/uL (0.0-0.4); HEMATOCRIT 23.9 % (37.0-47.0); LYMPH # 1.2 10*3/uL (1.3-4.4); LYMPH % 15.2 % (27.0-41.0); MEAN CELL VOLUME 98.4 fl (81.0-99.0); MEAN CORPUSCULAR HGB 29.6 pg (27.0-31.0); MEAN CORPUSCULAR HGB CONC 30.1 g/dl (33.0-37.0); MEAN PLATELET VOLUME 9.2 fl (9.6-12.3); MONO # 0.8 10*3/uL (0.1-1.0); MONO % 9.7 % (3.0-9.0); NEUT # 5.5 10*3/uL (2.3-7.9); NEUT % 71.3 % (47.0-73.0); NUCLEATED RED BLOOD CELL 0.3 % (0.0-0.0); PLATELET COUNT AUTOMATED 243 10*3/uL (130-400); RED BLOOD COUNT 2.43 10*6/uL (4.10-5.10); RED CELL DISTRI WIDTH 16.1 % (0-14.5); WHITE BLOOD COUNT 7.7 10*3/uL (4.8-10.8)
[2024-04-29 12:00] VITALS: BP 148/62
[2024-04-29 16:00] VITALS: BP 169/34
[2024-04-29 20:00] VITALS: BP 121/66; BP 143/44
[2024-04-30] VITALS: BP 131/45
[2024-04-30 06:28] LABS: BASO % 0.4 % (0.0-1.0); EOS # 0.3 10*3/uL (0.0-0.4); EOS % 4.5 % (1.0-4.0); HEMATOCRIT 24.7 % (37.0-47.0); LYMPH # 1.4 10*3/uL (1.3-4.4); LYMPH % 20.5 % (27.0-41.0); MEAN CELL VOLUME 98.4 fl (81.0-99.0); MEAN CORPUSCULAR HGB 28.7 pg (27.0-31.0); MEAN CORPUSCULAR HGB CONC 29.1 g/dl (33.0-37.0); MONO # 0.9 10*3/uL (0.1-1.0); MONO % 12.8 % (3.0-9.0); NEUT # 4.2 10*3/uL (2.3-7.9); NEUT % 61.4 % (47.0-73.0); NUCLEATED RED BLOOD CELL 0.4 % (0.0-0.0); PLATELET COUNT AUTOMATED 257 10*3/uL (130-400); RED BLOOD COUNT 2.51 10*6/uL (4.10-5.10); RED CELL DISTRI WIDTH 15.9 % (0-14.5); WHITE BLOOD COUNT 6.9 10*3/uL (4.8-10.8)
[2024-04-30 06:59] LABS: POTASSIUM 3.9 mmol/L (3.4-5.1)
[2024-04-30 08:00] VITALS: BP 157/31
[2024-04-30 12:00] VITALS: BP 134/46
[2024-04-30 16:00] VITALS: BP 157/35
[2024-04-30 20:00] VITALS: BP 140/30
[2024-05-01] VITALS: BP 139/35
[2024-05-01 07:24] LABS: BASO % 0.6 % (0.0-1.0); EOS # 0.4 10*3/uL (0.0-0.4); HEMATOCRIT 24.3 % (37.0-47.0); LYMPH # 1.6 10*3/uL (1.3-4.4); LYMPH % 22.1 % (27.0-41.0); MEAN CELL VOLUME 97.2 fl (81.0-99.0); MEAN CORPUSCULAR HGB 29.6 pg (27.0-31.0); MEAN CORPUSCULAR HGB CONC 30.5 g/dl (33.0-37.0); MEAN PLATELET VOLUME 10.4 fl (9.6-12.3); MONO % 13.6 % (3.0-9.0); NEUT # 4.2 10*3/uL (2.3-7.9); NEUT % 58.4 % (47.0-73.0); NUCLEATED RED BLOOD CELL 0.4 % (0.0-0.0); PLATELET COUNT AUTOMATED 259 10*3/uL (130-400); RED CELL DISTRI WIDTH 15.9 % (0-14.5); WHITE BLOOD COUNT 7.2 10*3/uL (4.8-10.8)
[2024-05-01 07:36] LABS: POTASSIUM 3.8 mmol/L (3.4-5.1)
[2024-05-01 08:00] VITALS: BP 142/33
[2024-05-01] MEDS ORDERED: XARE20MG PO (10:39)
== END 2024-05-01 13:34 | disposition home or self-care (01) | DRG 393 ==
LOC: ED 14:11 → 4E 17:25 → EDHOLD 17:25 → 4E 23:14
PROVIDERS: Emergency Medicine; Student in an Organized Health Care Education/Training Program; ADMIT Family Medicine; ATTEND Family Medicine
PROC: 0DJ08ZZ Inspection of Upper Intestinal Tract, Via Natural or Artificial Opening Endoscopic (ICD-10-PCS; principal; 2024-04-27)
PROC: 30233N1 Transfusion of Nonautologous Red Blood Cells into Peripheral Vein, Percutaneous Approach (ICD-10-PCS; 2024-04-28)
PROC: 0DBK8ZX Excision of Ascending Colon, Via Natural or Artificial Opening Endoscopic, Diagnostic (ICD-10-PCS; 2024-04-28)
DX: K63.81 Dieulafoy lesion of intestine (principal); I50.33 Acute on chronic diastolic (congestive) heart failure; N17.0 Acute kidney failure with tubular necrosis; E44.0 Moderate protein-calorie malnutrition; I11.0 Hypertensive heart disease with heart failure; D64.9 Anemia, unspecified; K63.5 Polyp of colon; K21.9 Gastro-esophageal reflux disease without esophagitis; I71.40 Abdominal aortic aneurysm, without rupture, unspecified; E11.40 Type 2 diabetes mellitus with diabetic neuropathy, unspecified; E11.65 Type 2 diabetes mellitus with hyperglycemia; E78.2 Mixed hyperlipidemia; E11.51 Type 2 diabetes mellitus with diabetic peripheral angiopathy without gangrene; I48.0 Paroxysmal atrial fibrillation; K44.9 Diaphragmatic hernia without obstruction or gangrene; K64.8 Other hemorrhoids; E66.01 Morbid (severe) obesity due to excess calories; Z79.899 Other long term (current) drug therapy; Z79.01 Long term (current) use of anticoagulants; Z79.2 Long term (current) use of antibiotics; Z86.718 Personal history of other venous thrombosis and embolism; Z85.118 Personal history of other malignant neoplasm of bronchus and lung; Z88.1 Allergy status to other antibiotic agents; Z88.0 Allergy status to penicillin; Z88.8 Allergy status to other drugs, medicaments and biological substances; Z91.09 Other allergy status, other than to drugs and biological substances; Z87.891 Personal history of nicotine dependence; Z80.41 Family history of malignant neoplasm of ovary; Z80.8 Family history of malignant neoplasm of other organs or systems; Z82.49 Family history of ischemic heart disease and other diseases of the circulatory system; Z83.3 Family history of diabetes mellitus; Z68.23 Body mass index [BMI] 23.0-23.9, adult

== ENCOUNTER 2024-05-23 14:38 | Inpatient (IN) | payer MEDICARE ==
[~2024-05-23] VITALS: Ht 167.6 cm; Wt 131.5 kg
[~2024-05-23 14:38] MED LIST changes: +POTASSIUM CHLO10 ME5 PO; +XARE20MG PO
[2024-05-23 14:44] VITALS: BP 167/34
[2024-05-23] MEDS ORDERED: FUROSEMIDE 40 MG/4 ML VIAL IV ONE (15:10)
[2024-05-23] MEDS ORDERED: Albuterol Sulfate 2.5 MG/3 ML VIAL NEB ONE (15:10)
[2024-05-23] MEDS ORDERED: methylPREDNISolone sod succ 125 MG VIAL IV ONE (15:10)
[2024-05-23 15:28] LABS: BASO # 0.1 10*3/uL (0.0-0.1); BASO % 0.8 % (0.0-1.0); EOS # 0.6 10*3/uL (0.0-0.4); EOS % 7.8 % (1.0-4.0); HEMATOCRIT 24.9 % (37.0-47.0); LYMPH # 1.3 10*3/uL (1.3-4.4); LYMPH % 15.9 % (27.0-41.0); MEAN CORPUSCULAR HGB 26.4 pg (27.0-31.0); MEAN CORPUSCULAR HGB CONC 28.1 g/dl (33.0-37.0); MONO # 0.9 10*3/uL (0.1-1.0); MONO % 11.2 % (3.0-9.0); NEUT % 63.9 % (47.0-73.0); NUCLEATED RED BLOOD CELL 0.3 % (0.0-0.0); PLATELET COUNT AUTOMATED 243 10*3/uL (130-400); RED BLOOD COUNT 2.65 10*6/uL (4.10-5.10); WHITE BLOOD COUNT 7.8 10*3/uL (4.8-10.8)
[2024-05-23 15:38] LABS: ACT PARTIAL THROMBO TIME 24.7 SECONDS (20.0-32.1)
[2024-05-23 15:49] LABS: POTASSIUM 4.8 mmol/L (3.4-5.1)
[2024-05-23 17:42] VITALS: BP 104/47
[2024-05-23] MEDS ORDERED: TEMAZEPAM 15 MG CAP PO PRN (17:45)
[2024-05-23] MEDS ORDERED: Acetaminophen/Hydrocodone 5 MG/325 MG TABLET PO PRN (17:45)
[2024-05-23] MEDS ORDERED: Magnesium Hydroxide 30 ML UDC PO PRN (17:45)
[2024-05-23] MEDS ORDERED: BISACODYL 5 MG TAB PO PRN (17:45)
[2024-05-23] MEDS ORDERED: BISACODYL 10 MG SUPP R PRN (17:45)
[2024-05-23] MEDS ORDERED: DEXTROSE 10 % IN WATER 250 ML IV PRN (18:00)
[2024-05-23 18:51] VITALS: BP 178/59
[2024-05-23] MEDS ORDERED: FUROSEMIDE 40 MG/4 ML VIAL IV SCH (20:00)
[2024-05-23] MEDS ORDERED: Doxycycline Hyclate 100 MG in SODIUM CHLORIDE 0.9% 250 ML IV SCH (20:00)
[2024-05-23] MEDS ORDERED: INSULIN LISPRO 1 UNIT/0.01 ML SQ SCH (22:00)
[2024-05-23] MEDS ORDERED: GABAPENTIN 600 MG TAB PO SCH (22:55)
[2024-05-24] VITALS: BP 170/60
[2024-05-24] MEDS ORDERED: Pantoprazole Sodium 40 MG VIAL IV SCH (06:00)
[2024-05-24 06:49] LABS: BASO % 0.3 % (0.0-1.0); HEMATOCRIT 24.9 % (37.0-47.0); LYMPH # 0.7 10*3/uL (1.3-4.4); LYMPH % 8.6 % (27.0-41.0); MEAN CELL VOLUME 91.5 fl (81.0-99.0); MEAN CORPUSCULAR HGB 26.1 pg (27.0-31.0); MEAN CORPUSCULAR HGB CONC 28.5 g/dl (33.0-37.0); MEAN PLATELET VOLUME 9.8 fl (9.6-12.3); MONO # 0.1 10*3/uL (0.1-1.0); MONO % 1.4 % (3.0-9.0); NEUT # 6.9 10*3/uL (2.3-7.9); NEUT % 89.3 % (47.0-73.0); NUCLEATED RED BLOOD CELL 0.4 % (0.0-0.0); PLATELET COUNT AUTOMATED 268 10*3/uL (130-400); RED BLOOD COUNT 2.72 10*6/uL (4.10-5.10); RED CELL DISTRI WIDTH 16.9 % (0-14.5); WHITE BLOOD COUNT 7.8 10*3/uL (4.8-10.8)
[2024-05-24 08:00] VITALS: BP 143/51
[2024-05-24 08:08] LABS: POTASSIUM 4.4 mmol/L (3.4-5.1); TOTAL PROTEIN 6.6 gm/dL (6.0-8.0)
[2024-05-24] MEDS ORDERED: GABAPENTIN 300 MG CAP PO SCH (10:00)
[2024-05-24] MEDS ORDERED: Enoxaparin Sodium 40 MG/0.4 ML SYR SC SCH (10:00)
[2024-05-24] MEDS ORDERED: SIMVASTATIN 20 MG TAB PO SCH (10:00)
[2024-05-24] MEDS ORDERED: Cholecalciferol 5,000 IU CAP (125 MCG) PO SCH (10:00)
[2024-05-24] MEDS ORDERED: METOPROLOL SUCCINATE XR 50 MG TAB PO SCH (10:00)
[2024-05-24] MEDS ORDERED: Losartan Potassium 100 MG TABLET PO SCH (10:00)
[2024-05-24] MEDS ORDERED: Fish Oil 500 MG CAP PO SCH (10:00)
[2024-05-24] MEDS ORDERED: MULTIVITAMIN 1 TAB TAB PO SCH (10:00)
[2024-05-24 12:00] VITALS: BP 149/45
[2024-05-24 13:39] LABS: ABG BASE EXCESS 2.9 mmol/L (-2.0-3.0); ABG O2 SATURATION 96.2 % (94.0-98.0); ARTERIAL BLOOD GAS PH 7.421 (7.350-7.450); ARTERIAL BLOOD GAS PO2 79.6 mmHg (83.0-108.0)
[2024-05-24] MEDS ORDERED: GABAPENTIN 600 MG TAB PO SCH (14:00)
[2024-05-24 16:00] VITALS: BP 129/56
[2024-05-24] MEDS ORDERED: FERROUS SULFATE 325 MG TAB PO SCH (16:50)
[2024-05-24 20:00] VITALS: BP 131/35
[2024-05-25] VITALS (12 sets, daily range): BP systolic 117–157; BP diastolic 24–59
[2024-05-25 06:28] LABS: HEMATOCRIT 23.2 % (37.0-47.0); MEAN CELL VOLUME 90.3 fl (81.0-99.0); MEAN CORPUSCULAR HGB 26.8 pg (27.0-31.0); MEAN CORPUSCULAR HGB CONC 29.7 g/dl (33.0-37.0); MEAN PLATELET VOLUME 9.9 fl (9.6-12.3); NUCLEATED RED BLOOD CELL 0.3 % (0.0-0.0); PLATELET COUNT AUTOMATED 262 10*3/uL (130-400); RED BLOOD COUNT 2.57 10*6/uL (4.10-5.10); WHITE BLOOD COUNT 10.3 10*3/uL (4.8-10.8)
[2024-05-25 06:29] LABS: MANUAL DIFF REFLEX YES
[2024-05-25 06:55] LABS: OVALOCYTES FEW; POLYCHROMASIA SLIGHT; TARGET CELLS FEW; TOTAL CELLS COUNTED 100 #CELLS
[2024-05-25 06:56] LABS: PLATELET SUFFICIENCY NORMAL (NORMAL); POTASSIUM 3.9 mmol/L (3.4-5.1); SCHISTOCYTES FEW
[2024-05-25] MEDS ORDERED: Albuterol Sulf/Ipratropium 3 ML VIAL NEB SCH (07:30)
[2024-05-25] MEDS ORDERED: SODIUM CHLORIDE 0.9% 10 ML VIAL IV ONE (08:55)
[2024-05-25] MEDS ORDERED: SODIUM CHLORIDE 0.9% 500 ML IV ONE (09:29)
[2024-05-25] MEDS ORDERED: FUROSEMIDE 40 MG/4 ML VIAL IV SCH (10:00)
[2024-05-25] MEDS ORDERED: NA FERRIC GLUC CMPL/SUCROSE 62.5 MG/5 ML VIAL IV SCH (10:00)
[2024-05-25] MEDS ORDERED: METOLAZONE 5 MG TAB PO SCH ×2 (11:45→14:00)
[2024-05-26] VITALS: BP 143/39
[2024-05-26 06:40] LABS: BASO # 0.1 10*3/uL (0.0-0.1); BASO % 0.7 % (0.0-1.0); EOS # 0.5 10*3/uL (0.0-0.4); EOS % 4.9 % (1.0-4.0); HEMATOCRIT 27.2 % (37.0-47.0); LYMPH # 1.6 10*3/uL (1.3-4.4); LYMPH % 17.5 % (27.0-41.0); MEAN CELL VOLUME 90.1 fl (81.0-99.0); MEAN CORPUSCULAR HGB 26.5 pg (27.0-31.0); MEAN CORPUSCULAR HGB CONC 29.4 g/dl (33.0-37.0); MEAN PLATELET VOLUME 9.8 fl (9.6-12.3); MONO # 1.2 10*3/uL (0.1-1.0); MONO % 12.5 % (3.0-9.0); NEUT # 5.9 10*3/uL (2.3-7.9); NUCLEATED RED BLOOD CELL 0.1 10*3/uL (0.0-0.0); NUCLEATED RED BLOOD CELL 0.5 % (0.0-0.0); PLATELET COUNT AUTOMATED 254 10*3/uL (130-400); RED BLOOD COUNT 3.02 10*6/uL (4.10-5.10); RED CELL DISTRI WIDTH 17.6 % (0-14.5); WHITE BLOOD COUNT 9.2 10*3/uL (4.8-10.8)
[2024-05-26 06:48] LABS: POTASSIUM 3.5 mmol/L (3.4-5.1)
[2024-05-26 08:00] VITALS: BP 151/36
[2024-05-26] MEDS ORDERED: METOLAZONE 5 MG TAB PO SCH (09:30)
[2024-05-26 12:00] VITALS: BP 112/50
[2024-05-26 16:00] VITALS: BP 147/34
[2024-05-26 20:49] VITALS: BP 130/32
[2024-05-27 00:34] VITALS: BP 134/48
[2024-05-27 06:31] LABS: BASO # 0.1 10*3/uL (0.0-0.1); BASO % 0.7 % (0.0-1.0); EOS # 0.8 10*3/uL (0.0-0.4); EOS % 8.2 % (1.0-4.0); HEMATOCRIT 28.2 % (37.0-47.0); LYMPH # 1.7 10*3/uL (1.3-4.4); LYMPH % 16.8 % (27.0-41.0); MEAN CELL VOLUME 88.1 fl (81.0-99.0); MEAN CORPUSCULAR HGB 26.6 pg (27.0-31.0); MEAN CORPUSCULAR HGB CONC 30.1 g/dl (33.0-37.0); MONO # 1.2 10*3/uL (0.1-1.0); MONO % 12.3 % (3.0-9.0); NEUT # 6.1 10*3/uL (2.3-7.9); NEUT % 61.5 % (47.0-73.0); NUCLEATED RED BLOOD CELL 0.4 % (0.0-0.0); PLATELET COUNT AUTOMATED 273 10*3/uL (130-400); RED CELL DISTRI WIDTH 17.5 % (0-14.5); WHITE BLOOD COUNT 9.9 10*3/uL (4.8-10.8)
[2024-05-27 06:43] LABS: POTASSIUM 3.3 mmol/L (3.4-5.1)
[2024-05-27 08:00] VITALS: BP 142/36
[2024-05-27] MEDS ORDERED: POTASSIUM CHLORIDE 20 MEQ TAB PO ONE (09:40)
[2024-05-27 12:00] VITALS: BP 142/36
[2024-05-27] MEDS ORDERED: EMPAGLIFLOZIN 10 MG TABLET PO ONE (12:50)
[2024-05-27 16:00] VITALS: BP 154/50
[2024-05-27] MEDS ORDERED: FUROSEMIDE 40 MG TAB PO SCH (18:00)
[2024-05-27 20:00] VITALS: BP 142/46
[2024-05-28] VITALS: BP 144/42
[2024-05-28] MEDS ORDERED: Doxycycline Hyclate 100 MG CAP PO SCH (06:17)
[2024-05-28 06:45] LABS: BASO # 0.1 10*3/uL (0.0-0.1); BASO % 0.6 % (0.0-1.0); EOS % 10.3 % (1.0-4.0); LYMPH # 1.7 10*3/uL (1.3-4.4); LYMPH % 17.5 % (27.0-41.0); MEAN CELL VOLUME 89.8 fl (81.0-99.0); MEAN CORPUSCULAR HGB 26.6 pg (27.0-31.0); MEAN CORPUSCULAR HGB CONC 29.7 g/dl (33.0-37.0); MEAN PLATELET VOLUME 10.3 fl (9.6-12.3); MONO # 1.2 10*3/uL (0.1-1.0); MONO % 12.6 % (3.0-9.0); NEUT # 5.6 10*3/uL (2.3-7.9); NEUT % 58.7 % (47.0-73.0); NUCLEATED RED BLOOD CELL 0.3 % (0.0-0.0); PLATELET COUNT AUTOMATED 280 10*3/uL (130-400); RED BLOOD COUNT 3.34 10*6/uL (4.10-5.10); WHITE BLOOD COUNT 9.5 10*3/uL (4.8-10.8)
[2024-05-28 06:46] LABS: POTASSIUM 4.7 mmol/L (3.4-5.1)
[2024-05-28 08:00] VITALS: BP 155/38
[2024-05-28 12:00] VITALS: BP 137/43
[2024-05-28] MEDS ORDERED: NYSTATIN 15 GM BOT T SCH (14:00)
[2024-05-28 16:00] VITALS: BP 142/32
[2024-05-28] MEDS ORDERED: TORSEMIDE 20 MG TAB PO SCH (18:00)
[2024-05-28 20:00] VITALS: BP 137/52
[2024-05-28] MEDS ORDERED: MAGNESIUM OXIDE 400 MG TAB PO SCH (21:10)
[2024-05-29] VITALS: BP 169/36
[2024-05-29] MEDS ORDERED: Pantoprazole Sodium 40 MG TAB PO SCH (06:00)
[2024-05-29 06:50] LABS: POTASSIUM 3.9 mmol/L (3.4-5.1)
[2024-05-29 07:04] LABS: BASO # 0.1 10*3/uL (0.0-0.1); BASO % 0.8 % (0.0-1.0); EOS # 0.7 10*3/uL (0.0-0.4); EOS % 8.1 % (1.0-4.0); HEMATOCRIT 32.2 % (37.0-47.0); LYMPH # 1.5 10*3/uL (1.3-4.4); LYMPH % 17.4 % (27.0-41.0); MEAN CELL VOLUME 90.2 fl (81.0-99.0); MEAN CORPUSCULAR HGB 27.2 pg (27.0-31.0); MEAN CORPUSCULAR HGB CONC 30.1 g/dl (33.0-37.0); MEAN PLATELET VOLUME 10.5 fl (9.6-12.3); MONO # 1.3 10*3/uL (0.1-1.0); MONO % 14.3 % (3.0-9.0); NEUT # 5.2 10*3/uL (2.3-7.9); NEUT % 59.2 % (47.0-73.0); NUCLEATED RED BLOOD CELL 0.2 % (0.0-0.0); PLATELET COUNT AUTOMATED 248 10*3/uL (130-400); RED BLOOD COUNT 3.57 10*6/uL (4.10-5.10); RED CELL DISTRI WIDTH 18.7 % (0-14.5); WHITE BLOOD COUNT 8.8 10*3/uL (4.8-10.8)
[2024-05-29 08:00] VITALS: BP 160/51
[2024-05-29 12:00] VITALS: BP 146/46
[2024-05-29 16:00] VITALS: BP 122/34
[2024-05-29] MEDS ORDERED: RIVAROXABAN 15 MG TAB PO SCH (17:00)
[2024-05-29 20:00] VITALS: BP 144/39
[2024-05-30] VITALS: BP 145/44
[2024-05-30 07:44] LABS: BASO # 0.1 10*3/uL (0.0-0.1); BASO % 0.7 % (0.0-1.0); EOS # 0.5 10*3/uL (0.0-0.4); EOS % 5.5 % (1.0-4.0); HEMATOCRIT 31.4 % (37.0-47.0); LYMPH # 1.6 10*3/uL (1.3-4.4); LYMPH % 18.9 % (27.0-41.0); MEAN CELL VOLUME 89.2 fl (81.0-99.0); MEAN CORPUSCULAR HGB 27.3 pg (27.0-31.0); MEAN CORPUSCULAR HGB CONC 30.6 g/dl (33.0-37.0); MEAN PLATELET VOLUME 9.9 fl (9.6-12.3); MONO # 1.3 10*3/uL (0.1-1.0); MONO % 14.9 % (3.0-9.0); NEUT # 5.1 10*3/uL (2.3-7.9); NEUT % 59.6 % (47.0-73.0); PLATELET COUNT AUTOMATED 256 10*3/uL (130-400); RED BLOOD COUNT 3.52 10*6/uL (4.10-5.10); WHITE BLOOD COUNT 8.5 10*3/uL (4.8-10.8)
[2024-05-30 08:00] VITALS: BP 128/33
[2024-05-30 08:02] LABS: POTASSIUM 4.2 mmol/L (3.4-5.1)
[2024-05-30] MEDS ORDERED: Enoxaparin Sodium 40 MG/0.4 ML SYR SC SCH (10:00)
[2024-05-30 16:00] VITALS: BP 136/48
[2024-05-30] MEDS ORDERED: TORSEMIDE 20 MG TAB PO ONE (16:50)
[2024-05-30] MEDS ORDERED: Cyclobenzaprine Hydrochlorid 10 MG TAB PO PRN (17:15)
[2024-05-30 20:00] VITALS: BP 135/81
[2024-05-31] VITALS: BP 124/60
[2024-05-31 05:05] LABS: POTASSIUM 3.3 mmol/L (3.4-5.1)
[2024-05-31 06:07] LABS: BASO # 0.1 10*3/uL (0.0-0.1); BASO % 0.7 % (0.0-1.0); EOS # 0.4 10*3/uL (0.0-0.4); HEMATOCRIT 32.4 % (37.0-47.0); LYMPH # 1.6 10*3/uL (1.3-4.4); LYMPH % 16.1 % (27.0-41.0); MEAN CELL VOLUME 90.8 fl (81.0-99.0); MEAN CORPUSCULAR HGB 26.6 pg (27.0-31.0); MEAN CORPUSCULAR HGB CONC 29.3 g/dl (33.0-37.0); MEAN PLATELET VOLUME 10.7 fl (9.6-12.3); MONO # 1.4 10*3/uL (0.1-1.0); MONO % 13.7 % (3.0-9.0); NEUT # 6.4 10*3/uL (2.3-7.9); NEUT % 65.1 % (47.0-73.0); NUCLEATED RED BLOOD CELL 0.2 % (0.0-0.0); PLATELET COUNT AUTOMATED 282 10*3/uL (130-400); RED BLOOD COUNT 3.57 10*6/uL (4.10-5.10); RED CELL DISTRI WIDTH 18.8 % (0-14.5); WHITE BLOOD COUNT 9.9 10*3/uL (4.8-10.8)
[2024-05-31] MEDS ORDERED: SODIUM CHLORIDE 0.9% 500 ML IV SCH (07:55)
[2024-05-31 08:00] VITALS: BP 172/54
[2024-05-31] MEDS ORDERED: POTASSIUM CHLORIDE 20 MEQ TAB PO ONE (08:55)
[2024-05-31 12:00] VITALS: BP 152/38
[2024-05-31 16:00] VITALS: BP 142/48
[2024-05-31 20:00] VITALS: BP 160/80
[2024-06-01] VITALS: BP 143/45
[2024-06-01 07:29] LABS: BASO # 0.1 10*3/uL (0.0-0.1); BASO % 0.7 % (0.0-1.0); EOS # 0.3 10*3/uL (0.0-0.4); EOS % 3.4 % (1.0-4.0); HEMATOCRIT 31.3 % (37.0-47.0); LYMPH # 1.5 10*3/uL (1.3-4.4); MEAN CELL VOLUME 90.5 fl (81.0-99.0); MEAN CORPUSCULAR HGB 26.6 pg (27.0-31.0); MEAN CORPUSCULAR HGB CONC 29.4 g/dl (33.0-37.0); MEAN PLATELET VOLUME 9.8 fl (9.6-12.3); MONO # 1.3 10*3/uL (0.1-1.0); MONO % 13.9 % (3.0-9.0); NEUT # 6.2 10*3/uL (2.3-7.9); NEUT % 65.7 % (47.0-73.0); PLATELET COUNT AUTOMATED 279 10*3/uL (130-400); RED BLOOD COUNT 3.46 10*6/uL (4.10-5.10); WHITE BLOOD COUNT 9.4 10*3/uL (4.8-10.8)
[2024-06-01 07:48] LABS: POTASSIUM 4.1 mmol/L (3.4-5.1)
[2024-06-01 08:00] VITALS: BP 108/77
[2024-06-01] MEDS ORDERED: NYAMYC15 GM T (11:24)
[2024-06-01] MEDS ORDERED: MASON NATURAL325 MG PO (11:24)
[2024-06-01] MEDS ORDERED: DOXYCYCLINE MO100 MG PO (11:24)
[2024-06-01] MEDS ORDERED: CYCLOBENZAPRINE10 MG PO (11:24)
[2024-06-01] MEDS ORDERED: XARE15TA PO (11:24)
[2024-06-01] MEDS ORDERED: MAGNESIUM OXID400 MG PO (11:24)
[2024-06-01] MEDS ORDERED: Ipratropium Brom3 ML NEB (11:24)
[2024-06-01] MEDS ORDERED: ADMELOG100 UNIT/1 SQ (11:24)
[2024-06-01] MEDS ORDERED: NEURONTIN300 MG PO (11:24)
[2024-06-01 12:00] VITALS: BP 142/45
== END 2024-06-01 13:25 | DRG 177 ==
LOC: ED 14:38 → 4E 17:16 → EDHOLD 17:16 → 4E 17:34
PROVIDERS: Internal Medicine Critical Care Medicine; Nurse Practitioner; Student in an Organized Health Care Education/Training Program; ADMIT Internal Medicine; ATTEND Internal Medicine
PROC: 30233N1 Transfusion of Nonautologous Red Blood Cells into Peripheral Vein, Percutaneous Approach (ICD-10-PCS; principal; 2024-05-25)
DX: J69.0 Pneumonitis due to inhalation of food and vomit (principal); I50.33 Acute on chronic diastolic (congestive) heart failure; J96.21 Acute and chronic respiratory failure with hypoxia; N17.0 Acute kidney failure with tubular necrosis; I13.0 Hypertensive heart and chronic kidney disease with heart failure and stage 1 through stage 4 chronic kidney disease, or unspecified chronic kidney disease; E44.0 Moderate protein-calorie malnutrition; E87.1 Hypo-osmolality and hyponatremia; I48.21 Permanent atrial fibrillation; I82.411 Acute embolism and thrombosis of right femoral vein; I82.431 Acute embolism and thrombosis of right popliteal vein; I82.441 Acute embolism and thrombosis of right tibial vein; Z68.43 Body mass index [BMI] 50.0-59.9, adult; I71.40 Abdominal aortic aneurysm, without rupture, unspecified; E78.5 Hyperlipidemia, unspecified; E11.40 Type 2 diabetes mellitus with diabetic neuropathy, unspecified; E11.65 Type 2 diabetes mellitus with hyperglycemia; I45.10 Unspecified right bundle-branch block; J44.9 Chronic obstructive pulmonary disease, unspecified; I35.0 Nonrheumatic aortic (valve) stenosis; N18.9 Chronic kidney disease, unspecified; K21.9 Gastro-esophageal reflux disease without esophagitis; I44.0 Atrioventricular block, first degree; D50.9 Iron deficiency anemia, unspecified; E66.01 Morbid (severe) obesity due to excess calories; E83.52 Hypercalcemia; E87.6 Hypokalemia; E87.8 Other disorders of electrolyte and fluid balance, not elsewhere classified; E11.22 Type 2 diabetes mellitus with diabetic chronic kidney disease; T50.2X5A Adverse effect of carbonic-anhydrase inhibitors, benzothiadiazides and other diuretics, initial encounter; Z79.899 Other long term (current) drug therapy; Z79.01 Long term (current) use of anticoagulants; Z79.2 Long term (current) use of antibiotics; Z88.1 Allergy status to other antibiotic agents; Z88.0 Allergy status to penicillin; Z88.8 Allergy status to other drugs, medicaments and biological substances; Z91.09 Other allergy status, other than to drugs and biological substances; Z87.891 Personal history of nicotine dependence; Z83.3 Family history of diabetes mellitus; Z82.49 Family history of ischemic heart disease and other diseases of the circulatory system; Z80.41 Family history of malignant neoplasm of ovary; Z80.8 Family history of malignant neoplasm of other organs or systems; Z86.711 Personal history of pulmonary embolism; Z85.118 Personal history of other malignant neoplasm of bronchus and lung; Y92.89 Other specified places as the place of occurrence of the external cause

== ENCOUNTER 2024-07-19 11:35 | Inpatient (IN) | payer MEDICARE ==
[~2024-07-19] VITALS: Ht 167.6 cm; Wt 133.1 kg
[~2024-07-19 11:35] MED LIST changes: +ADMELOG100 UNIT/1 SQ; +CYCLOBENZAPRINE10 MG PO; +DOXYCYCLINE MO100 MG PO; +Ipratropium Brom3 ML NEB; +MAGNESIUM OXID400 MG PO; +MASON NATURAL325 MG PO; +NYAMYC15 GM T
[2024-07-19 11:38] VITALS: BP 145/53
[2024-07-19] MEDS ORDERED: XARE15TA PO (11:47)
[2024-07-19] MEDS ORDERED: LASIX40 MG PO (11:47)
[2024-07-19] MEDS ORDERED: FISH OIL PO (11:48)
[2024-07-19] MEDS ORDERED: VITAMIN D3125 MC1 PO (11:49)
[2024-07-19] MEDS ORDERED: Magnesium Oxid400 MG PO (11:52)
[2024-07-19] MEDS ORDERED: GLIPIZIDE5 MG PO (11:52)
[2024-07-19] MEDS ORDERED: ALDACTONE25 MG PO (11:53)
[2024-07-19] MEDS ORDERED: NEURONTIN300 MG PO (11:53)
[2024-07-19] MEDS ORDERED: GABAPENTIN600 MG PO (11:54)
[2024-07-19] MEDS ORDERED: SODIUM CHLORI1000 M5 PO (11:54)
[2024-07-19 12:27] LABS: BASO # 0.1 10*3/uL (0.0-0.1); BASO % 0.7 % (0.0-1.0); EOS # 0.4 10*3/uL (0.0-0.4); HEMATOCRIT 35.5 % (37.0-47.0); MEAN CELL VOLUME 90.8 fl (81.0-99.0); MEAN CORPUSCULAR HGB 26.6 pg (27.0-31.0); MEAN CORPUSCULAR HGB CONC 29.3 g/dl (33.0-37.0); MEAN PLATELET VOLUME 10.6 fl (9.6-12.3); MONO # 0.6 10*3/uL (0.1-1.0); MONO % 8.1 % (3.0-9.0); NEUT # 4.8 10*3/uL (2.3-7.9); NEUT % 67.2 % (47.0-73.0); PLATELET COUNT AUTOMATED 245 10*3/uL (130-400); RED BLOOD COUNT 3.91 10*6/uL (4.10-5.10); RED CELL DISTRI WIDTH 19.6 % (0-14.5); WHITE BLOOD COUNT 7.2 10*3/uL (4.8-10.8)
[2024-07-19 12:46] LABS: BILIRUBIN Negative (Negative); BLOOD Negative (Negative); CLARITY Cloudy (Clear); COLOR Yellow (Yellow); GLUCOSE Trace (Negative); KETONE Negative (Negative); LEUKO ESTERASE 2+ (Negative); NITRITE Negative (Negative); PH 5.5 (4.5-8.0); UROBILINOGEN 0.2 E.U./dl (0.0-1.0)
[2024-07-19 12:55] LABS: POTASSIUM 4.7 mmol/L (3.4-5.1)
[2024-07-19 13:11] LABS: WBC 51-100 wbc/hpf (0-5)
[2024-07-19] MEDS ORDERED: Ceftriaxone Sodium 1 GM/10 ML SYR IV ONE (13:25)
[2024-07-19] MEDS ORDERED: FUROSEMIDE 40 MG/4 ML VIAL IV ONE (13:30)
[2024-07-19] MEDS ORDERED: ACETAMINOPHEN 325 MG TAB PO PRN (14:25)
[2024-07-19] MEDS ORDERED: BISACODYL 5 MG TAB PO PRN (14:25)
[2024-07-19] MEDS ORDERED: Ondansetron Hydrochloride 4 MG/2 ML VIAL IV PRN (14:25)
[2024-07-19 17:22] VITALS: BP 107/32
[2024-07-19 19:55] VITALS: BP 122/47
[2024-07-19] MEDS ORDERED: GABAPENTIN 600 MG TAB PO SCH (22:00)
[2024-07-19] MEDS ORDERED: SIMVASTATIN 20 MG TAB PO SCH (22:00)
[2024-07-19 22:15] VITALS: BP 105/52
[2024-07-20 05:21] VITALS: BP 107/49
[2024-07-20 08:00] VITALS: BP 108/33
[2024-07-20] MEDS ORDERED: METOPROLOL SUCCINATE XR 50 MG TAB PO SCH (10:00)
[2024-07-20] MEDS ORDERED: RIVAROXABAN 15 MG TAB PO SCH (10:00)
[2024-07-20] MEDS ORDERED: GABAPENTIN 300 MG CAP PO SCH (10:00)
[2024-07-20] MEDS ORDERED: SPIRONOLACTONE 25 MG TAB PO SCH (10:00)
[2024-07-20] MEDS ORDERED: POTASSIUM CHLORIDE 10 MEQ TAB PO SCH (10:00)
[2024-07-20 12:00] VITALS: BP 106/72
[2024-07-20] MEDS ORDERED: Ceftriaxone Sodium 1 GM,IV 1 EA in SYRINGE INFUSION 10 ML IV SCH (12:00)
[2024-07-20 15:34] VITALS: BP 150/45
[2024-07-20] MEDS ORDERED: DEXTROSE 10 % IN WATER 250 ML IV PRN (17:00)
[2024-07-20 20:00] VITALS: BP 122/45; BP 128/42
[2024-07-20] MEDS ORDERED: INSULIN LISPRO 1 UNIT/0.01 ML SQ SCH (22:00)
[2024-07-21] VITALS: BP 126/55
[2024-07-21 06:24] LABS: BASO # 0.1 10*3/uL (0.0-0.1); BASO % 0.7 % (0.0-1.0); EOS # 0.5 10*3/uL (0.0-0.4); EOS % 6.3 % (1.0-4.0); HEMATOCRIT 34.7 % (37.0-47.0); MEAN CELL VOLUME 91.8 fl (81.0-99.0); MEAN CORPUSCULAR HGB 26.5 pg (27.0-31.0); MEAN CORPUSCULAR HGB CONC 28.8 g/dl (33.0-37.0); MEAN PLATELET VOLUME 10.7 fl (9.6-12.3); MONO # 0.8 10*3/uL (0.1-1.0); MONO % 10.7 % (3.0-9.0); NEUT # 4.1 10*3/uL (2.3-7.9); NEUT % 57.9 % (47.0-73.0); PLATELET COUNT AUTOMATED 249 10*3/uL (130-400); RED BLOOD COUNT 3.78 10*6/uL (4.10-5.10); RED CELL DISTRI WIDTH 19.6 % (0-14.5); WHITE BLOOD COUNT 7.1 10*3/uL (4.8-10.8)
[2024-07-21 06:44] LABS: POTASSIUM 5.5 mmol/L (3.4-5.1); TOTAL PROTEIN 6.7 gm/dL (6.0-8.0)
[2024-07-21] MEDS ORDERED: SODIUM POLYSTYRENE SULFONATE 15 GM/60 ML BOT PO ONE (07:15)
[2024-07-21 08:00] VITALS: BP 122/36
[2024-07-21] MEDS ORDERED: SODIUM CHLORIDE 0.9% 1,000 ML IV ONE (09:00)
[2024-07-21 12:00] VITALS: BP 134/31
[2024-07-21 16:00] VITALS: BP 154/34
[2024-07-21 20:00] VITALS: BP 146/74
[2024-07-22] VITALS: BP 126/55
[2024-07-22 05:49] LABS: POTASSIUM 4.5 mmol/L (3.4-5.1)
[2024-07-22 06:05] LABS: BASO % 0.6 % (0.0-1.0); EOS # 0.4 10*3/uL (0.0-0.4); EOS % 6.2 % (1.0-4.0); HEMATOCRIT 33.9 % (37.0-47.0); MEAN CELL VOLUME 92.1 fl (81.0-99.0); MEAN CORPUSCULAR HGB 26.4 pg (27.0-31.0); MEAN CORPUSCULAR HGB CONC 28.6 g/dl (33.0-37.0); MEAN PLATELET VOLUME 10.6 fl (9.6-12.3); MONO # 0.7 10*3/uL (0.1-1.0); MONO % 10.7 % (3.0-9.0); NEUT # 4.1 10*3/uL (2.3-7.9); NEUT % 61.7 % (47.0-73.0); PLATELET COUNT AUTOMATED 229 10*3/uL (130-400); RED BLOOD COUNT 3.68 10*6/uL (4.10-5.10); RED CELL DISTRI WIDTH 19.6 % (0-14.5); WHITE BLOOD COUNT 6.6 10*3/uL (4.8-10.8)
[2024-07-22 08:00] VITALS: BP 154/99
[2024-07-22 11:57] VITALS: BP 147/52
[2024-07-22 16:00] VITALS: BP 143/51
[2024-07-22 20:00] VITALS: BP 140/41
[2024-07-23] VITALS: BP 127/48; BP 137/33
[2024-07-23 06:23] LABS: BASO # 0.1 10*3/uL (0.0-0.1); EOS # 0.4 10*3/uL (0.0-0.4); EOS % 6.8 % (1.0-4.0); HEMATOCRIT 32.8 % (37.0-47.0); MEAN CELL VOLUME 91.9 fl (81.0-99.0); MEAN CORPUSCULAR HGB 27.2 pg (27.0-31.0); MEAN CORPUSCULAR HGB CONC 29.6 g/dl (33.0-37.0); MEAN PLATELET VOLUME 11.1 fl (9.6-12.3); MONO # 0.7 10*3/uL (0.1-1.0); MONO % 11.9 % (3.0-9.0); NEUT # 3.1 10*3/uL (2.3-7.9); NEUT % 52.3 % (47.0-73.0); PLATELET COUNT AUTOMATED 235 10*3/uL (130-400); RED BLOOD COUNT 3.57 10*6/uL (4.10-5.10); RED CELL DISTRI WIDTH 19.7 % (0-14.5); WHITE BLOOD COUNT 5.9 10*3/uL (4.8-10.8)
[2024-07-23 06:48] LABS: POTASSIUM 4.5 mmol/L (3.4-5.1)
[2024-07-23 08:00] VITALS: BP 128/49
[2024-07-23 12:00] VITALS: BP 148/40
[2024-07-23 16:00] VITALS: BP 151/46
[2024-07-23 20:00] VITALS: BP 162/45
[2024-07-24] VITALS: BP 140/45
[2024-07-24 06:09] LABS: POTASSIUM 5.1 mmol/L (3.4-5.1)
[2024-07-24 06:48] LABS: BASO % 0.6 % (0.0-1.0); EOS # 0.4 10*3/uL (0.0-0.4); EOS % 5.8 % (1.0-4.0); HEMATOCRIT 33.7 % (37.0-47.0); MEAN CELL VOLUME 92.8 fl (81.0-99.0); MEAN CORPUSCULAR HGB CONC 29.1 g/dl (33.0-37.0); MEAN PLATELET VOLUME 10.9 fl (9.6-12.3); MONO # 0.9 10*3/uL (0.1-1.0); MONO % 12.1 % (3.0-9.0); NEUT # 4.1 10*3/uL (2.3-7.9); NEUT % 58.1 % (47.0-73.0); PLATELET COUNT AUTOMATED 244 10*3/uL (130-400); RED BLOOD COUNT 3.63 10*6/uL (4.10-5.10); RED CELL DISTRI WIDTH 19.6 % (0-14.5); WHITE BLOOD COUNT 7.1 10*3/uL (4.8-10.8)
[2024-07-24 08:00] VITALS: BP 145/44
[2024-07-24] MEDS ORDERED: FUROSEMIDE 20 MG/2 ML VIAL IV ONE (09:25)
[2024-07-24] MEDS ORDERED: Losartan Potassium 100 MG TABLET PO SCH (10:00)
[2024-07-24 12:00] VITALS: BP 123/43
[2024-07-24 15:21] VITALS: BP 109/77
[2024-07-24 20:00] VITALS: BP 153/46
[2024-07-25] VITALS: BP 143/25
[2024-07-25 08:00] VITALS: BP 136/40
[2024-07-25 08:01] LABS: POTASSIUM 4.1 mmol/L (3.4-5.1)
[2024-07-25] MEDS ORDERED: FUROSEMIDE 20 MG TAB PO SCH (10:00)
[2024-07-25 12:00] VITALS: BP 140/38
[2024-07-25] MEDS ORDERED: FUROSEMIDE20 M1 PO (16:01)
== END 2024-07-25 17:10 | DRG 682 ==
LOC: ED 11:35 → 4E 13:37 → EDHOLD 13:37 → 4E 07-20 13:34
PROVIDERS: Emergency Medicine; Internal Medicine; Student in an Organized Health Care Education/Training Program; ADMIT Internal Medicine; ATTEND Internal Medicine
DX: N17.0 Acute kidney failure with tubular necrosis (principal); I50.33 Acute on chronic diastolic (congestive) heart failure; N30.00 Acute cystitis without hematuria; Z68.42 Body mass index [BMI] 45.0-49.9, adult; E44.0 Moderate protein-calorie malnutrition; G90.89 Other disorders of autonomic nervous system; I11.0 Hypertensive heart disease with heart failure; E78.2 Mixed hyperlipidemia; Z66 Do not resuscitate; E11.42 Type 2 diabetes mellitus with diabetic polyneuropathy; K21.9 Gastro-esophageal reflux disease without esophagitis; I48.0 Paroxysmal atrial fibrillation; R54 Age-related physical debility; R26.2 Difficulty in walking, not elsewhere classified; E87.5 Hyperkalemia; E66.9 Obesity, unspecified; E83.52 Hypercalcemia; Z88.0 Allergy status to penicillin; Z88.1 Allergy status to other antibiotic agents; Z88.8 Allergy status to other drugs, medicaments and biological substances; Z79.899 Other long term (current) drug therapy; Z87.891 Personal history of nicotine dependence; Z80.41 Family history of malignant neoplasm of ovary; Z86.73 Personal history of transient ischemic attack (TIA), and cerebral infarction without residual deficits; Z86.718 Personal history of other venous thrombosis and embolism

== ENCOUNTER 2024-08-20 20:02 | Inpatient (IN) | payer MEDICARE ==
[~2024-08-20] VITALS: Ht 167.6 cm; Wt 137.5 kg
[~2024-08-20 20:02] MED LIST changes: +ALDACTONE25 MG PO; +FISH OIL PO; +FUROSEMIDE20 M1 PO; +GABAPENTIN600 MG PO; +LASIX40 MG PO; +Magnesium Oxid400 MG PO; +SODIUM CHLORI1000 M5 PO; +VITAMIN D3125 MC1 PO
[2024-08-20 20:08] VITALS: BP 116/50
[2024-08-20 20:33] LABS: BILIRUBIN Negative (Negative); BLOOD Negative (Negative); CLARITY Clear (Clear); COLOR Yellow (Yellow); GLUCOSE Negative (Negative); KETONE Negative (Negative); LEUKO ESTERASE Negative (Negative); NITRITE Negative (Negative); SPECIFIC GRAVITY 1.015 (1.001-1.030); UROBILINOGEN 0.2 E.U./dl (0.0-1.0)
[2024-08-20 20:36] LABS: PH 8.5 (4.5-8.0)
[2024-08-20 20:45] LABS: BASO % 0.3 % (0.0-1.0); EOS % 0.3 % (1.0-4.0); HEMATOCRIT 31.2 % (37.0-47.0); MEAN CELL VOLUME 91.2 fl (81.0-99.0); MEAN CORPUSCULAR HGB 27.2 pg (27.0-31.0); MEAN CORPUSCULAR HGB CONC 29.8 g/dl (33.0-37.0); MEAN PLATELET VOLUME 9.7 fl (9.6-12.3); MONO # 1.2 10*3/uL (0.1-1.0); MONO % 18.5 % (3.0-9.0); NEUT # 4.4 10*3/uL (2.3-7.9); PLATELET COUNT AUTOMATED 267 10*3/uL (130-400); RED BLOOD COUNT 3.42 10*6/uL (4.10-5.10); RED CELL DISTRI WIDTH 19.9 % (0-14.5); WHITE BLOOD COUNT 6.3 10*3/uL (4.8-10.8)
[2024-08-20 21:11] LABS: POTASSIUM 4.6 mmol/L (3.4-5.1)
[2024-08-20 21:22] LABS: BACTERIA TRACE
[2024-08-20 22:33] LABS: ABG BASE EXCESS 4.1 mmol/L (-2.0-3.0); ABG O2 SATURATION 96.1 % (94.0-98.0); ARTERIAL BLOOD GAS PH 7.412 (7.350-7.450); ARTERIAL BLOOD GAS PO2 92.3 mmHg (83.0-108.0)
[2024-08-20] MEDS ORDERED: SODIUM CHLORIDE 0.9% 1,000 ML IV ONE (23:55)
[2024-08-21] VITALS (8 sets, daily range): BP systolic 122–161; BP diastolic 34–44
[2024-08-21] MEDS ORDERED: Magnesium Hydroxide 30 ML UDC PO PRN (00:45)
[2024-08-21] MEDS ORDERED: BISACODYL 5 MG TAB PO PRN (00:45)
[2024-08-21] MEDS ORDERED: TEMAZEPAM 15 MG CAP PO PRN (00:45)
[2024-08-21] MEDS ORDERED: BISACODYL 10 MG SUPP R PRN (00:45)
[2024-08-21] MEDS ORDERED: ACETAMINOPHEN 650 MG SUPP R PRN (00:45)
[2024-08-21] MEDS ORDERED: Ondansetron Hydrochloride 4 MG/2 ML VIAL IV PRN (00:45)
[2024-08-21] MEDS ORDERED: ACETAMINOPHEN 325 MG TAB PO PRN (00:45)
[2024-08-21] MEDS ORDERED: FUROSEMIDE 40 MG/4 ML VIAL IV ONE (01:05)
[2024-08-21] MEDS ORDERED: DEXTROSE 10 % IN WATER 250 ML IV PRN (01:20)
[2024-08-21 04:53] LABS: URINE AMPHETAMINES Negative (1000ng/ml); URINE BARBITURATES Negative (200ng/ml); URINE BENZODIAZEPINES Negative (200ng/ml); URINE CANNABINOIDS (THC) Negative (50ng/ml); URINE COCAINE Negative (300ng/ml); URINE METHADONE Negative (300ng/ml); URINE OPIATES Negative (300ng/ml); URINE PHENCYCLIDINE Negative (25ng/ml)
[2024-08-21 06:30] LABS: HEMATOCRIT 30.9 % (37.0-47.0); MEAN CELL VOLUME 91.2 fl (81.0-99.0); MEAN CORPUSCULAR HGB 27.1 pg (27.0-31.0); MEAN CORPUSCULAR HGB CONC 29.8 g/dl (33.0-37.0); MEAN PLATELET VOLUME 9.8 fl (9.6-12.3); PLATELET COUNT AUTOMATED 260 10*3/uL (130-400); RED BLOOD COUNT 3.39 10*6/uL (4.10-5.10); WHITE BLOOD COUNT 5.9 10*3/uL (4.8-10.8)
[2024-08-21 06:37] LABS: ACT PARTIAL THROMBO TIME 29.2 SECONDS (20.0-32.1)
[2024-08-21 06:38] LABS: MANUAL DIFF REFLEX YES
[2024-08-21 07:08] LABS: POTASSIUM 4.3 mmol/L (3.4-5.1); TOTAL PROTEIN 7.1 gm/dL (6.0-8.0)
[2024-08-21] MEDS ORDERED: glipiZIDE 5 MG TAB PO SCH ×2 (07:30→10:26)
[2024-08-21] MEDS ORDERED: INSULIN LISPRO 1 UNIT/0.01 ML SQ SCH (07:30)
[2024-08-21 07:46] LABS: VITAMIN D, 25-HYDROXY 91.1 ng/mL (30-100)
[2024-08-21 07:57] LABS: BASOPHILS 1 % (0-1); TOTAL CELLS COUNTED 100 #CELLS
[2024-08-21 07:59] LABS: OVALOCYTES FEW; PLATELET SUFFICIENCY NORMAL (NORMAL); POLYCHROMASIA SLIGHT; TARGET CELLS FEW
[2024-08-21] MEDS ORDERED: REMDESIVIR 200 MG in SODIUM CHLORIDE 0.9% 210 ML IV SCH (08:05)
[2024-08-21] MEDS ORDERED: FUROSEMIDE 40 MG/4 ML VIAL IV SCH (10:00)
[2024-08-21] MEDS ORDERED: METOPROLOL SUCCINATE XR 50 MG TAB PO SCH (10:00)
[2024-08-21] MEDS ORDERED: Fish Oil 1,000 MG CAP PO SCH ×2 (10:00)
[2024-08-21] MEDS ORDERED: RIVAROXABAN 15 MG TAB PO SCH ×2 (10:00)
[2024-08-21] MEDS ORDERED: Losartan Potassium 50 MG TAB PO SCH (10:00)
[2024-08-21] MEDS ORDERED: GABAPENTIN 300 MG CAP PO SCH (10:00)
[2024-08-21] MEDS ORDERED: Benzocaine/Menthol 1 LOZ LOZENGE PO PRN (21:20)
[2024-08-21] MEDS ORDERED: GABAPENTIN 600 MG TAB PO SCH (22:00)
[2024-08-21] MEDS ORDERED: SIMVASTATIN 20 MG TAB PO SCH (22:00)
[2024-08-22] VITALS: BP 128/39
[2024-08-22 06:39] LABS: BASO % 0.4 % (0.0-1.0); EOS # 0.1 10*3/uL (0.0-0.4); EOS % 0.7 % (1.0-4.0); HEMATOCRIT 33.2 % (37.0-47.0); MEAN CELL VOLUME 92.7 fl (81.0-99.0); MEAN CORPUSCULAR HGB 27.4 pg (27.0-31.0); MEAN CORPUSCULAR HGB CONC 29.5 g/dl (33.0-37.0); MEAN PLATELET VOLUME 10.4 fl (9.6-12.3); MONO # 1.2 10*3/uL (0.1-1.0); MONO % 16.8 % (3.0-9.0); NEUT # 4.3 10*3/uL (2.3-7.9); NEUT % 61.4 % (47.0-73.0); PLATELET COUNT AUTOMATED 265 10*3/uL (130-400); RED BLOOD COUNT 3.58 10*6/uL (4.10-5.10); RED CELL DISTRI WIDTH 20.1 % (0-14.5)
[2024-08-22 06:54] LABS: POTASSIUM 4.3 mmol/L (3.4-5.1)
[2024-08-22 08:00] VITALS: BP 143/45
[2024-08-22 12:00] VITALS: BP 96/74
[2024-08-22] MEDS ORDERED: SODIUM CHLORIDE 0.9% 1,000 ML IV ONE (12:10)
[2024-08-22] MEDS ORDERED: BARICITINIB PO SCH (13:00)
[2024-08-22] MEDS ORDERED: BARICITINIB 2 MG TABLET PO SCH (13:00)
[2024-08-22 16:00] VITALS: BP 102/73; BP 104/58
[2024-08-22 18:00] VITALS: BP 113/69
[2024-08-22 20:00] VITALS: BP 135/50
[2024-08-23] VITALS: BP 125/52
[2024-08-23 06:10] LABS: BASO % 0.4 % (0.0-1.0); EOS # 0.1 10*3/uL (0.0-0.4); EOS % 2.1 % (1.0-4.0); HEMATOCRIT 32.7 % (37.0-47.0); MEAN CELL VOLUME 91.1 fl (81.0-99.0); MEAN CORPUSCULAR HGB CONC 29.7 g/dl (33.0-37.0); MEAN PLATELET VOLUME 10.1 fl (9.6-12.3); MONO # 0.8 10*3/uL (0.1-1.0); MONO % 15.7 % (3.0-9.0); NEUT # 2.6 10*3/uL (2.3-7.9); NEUT % 48.6 % (47.0-73.0); PLATELET COUNT AUTOMATED 272 10*3/uL (130-400); RED BLOOD COUNT 3.59 10*6/uL (4.10-5.10); RED CELL DISTRI WIDTH 19.7 % (0-14.5); WHITE BLOOD COUNT 5.3 10*3/uL (4.8-10.8)
[2024-08-23 06:25] LABS: POTASSIUM 3.9 mmol/L (3.4-5.1)
[2024-08-23 08:00] VITALS: BP 124/85
[2024-08-23] MEDS ORDERED: BARICITINIB PO SCH (10:00)
[2024-08-23 12:00] VITALS: BP 107/53
[2024-08-23 16:00] VITALS: BP 122/28
[2024-08-23 20:00] VITALS: BP 141/41
[2024-08-24] VITALS: BP 145/37
[2024-08-24 08:00] VITALS: BP 128/68
[2024-08-24] MEDS ORDERED: DEXAMETHASONE 4 MG TAB PO SCH (10:00)
[2024-08-24 10:15] VITALS: BP 150/42
[2024-08-24 12:00] VITALS: BP 145/42
[2024-08-24 16:00] VITALS: BP 133/51
[2024-08-24 20:00] VITALS: BP 160/39
[2024-08-25] VITALS: BP 152/38
[2024-08-25 06:15] LABS: BASO % 0.2 % (0.0-1.0); HEMATOCRIT 33.7 % (37.0-47.0); MEAN CELL VOLUME 90.8 fl (81.0-99.0); MEAN CORPUSCULAR HGB CONC 29.7 g/dl (33.0-37.0); MONO # 0.6 10*3/uL (0.1-1.0); MONO % 10.3 % (3.0-9.0); NEUT # 3.9 10*3/uL (2.3-7.9); PLATELET COUNT AUTOMATED 303 10*3/uL (130-400); RED BLOOD COUNT 3.71 10*6/uL (4.10-5.10); RED CELL DISTRI WIDTH 18.9 % (0-14.5); WHITE BLOOD COUNT 5.6 10*3/uL (4.8-10.8)
[2024-08-25 06:48] LABS: POTASSIUM 4.8 mmol/L (3.4-5.1)
[2024-08-25 08:00] VITALS: BP 140/50
[2024-08-25] MEDS ORDERED: FUROSEMIDE 40 MG TAB PO SCH (10:00)
[2024-08-25 12:00] VITALS: BP 163/63
[2024-08-25] MEDS ORDERED: DECADRON4 MG PO (13:15)
[2024-08-25] MEDS ORDERED: OLUMIANT2 MG PO (13:15)
== END 2024-08-25 16:33 | DRG 871 ==
LOC: ED 20:02 → 4E 08-21 00:32 → EDHOLD 08-21 00:32 → 4E 08-21 16:27
PROVIDERS: Internal Medicine; Registered Nurse; Student in an Organized Health Care Education/Training Program; ADMIT Internal Medicine; ATTEND Internal Medicine
DX: A41.89 Other specified sepsis (principal); G93.41 Metabolic encephalopathy; I50.33 Acute on chronic diastolic (congestive) heart failure; U07.1 COVID-19; E87.29 Other acidosis; I13.0 Hypertensive heart and chronic kidney disease with heart failure and stage 1 through stage 4 chronic kidney disease, or unspecified chronic kidney disease; R54 Age-related physical debility; I45.10 Unspecified right bundle-branch block; I25.10 Atherosclerotic heart disease of native coronary artery without angina pectoris; K21.9 Gastro-esophageal reflux disease without esophagitis; N18.32 Chronic kidney disease, stage 3b; D50.9 Iron deficiency anemia, unspecified; E11.42 Type 2 diabetes mellitus with diabetic polyneuropathy; E11.22 Type 2 diabetes mellitus with diabetic chronic kidney disease; I48.91 Unspecified atrial fibrillation; Z87.891 Personal history of nicotine dependence; Z80.41 Family history of malignant neoplasm of ovary; Z88.0 Allergy status to penicillin; Z88.8 Allergy status to other drugs, medicaments and biological substances; Z79.899 Other long term (current) drug therapy; Z88.1 Allergy status to other antibiotic agents

== ENCOUNTER → 2024-11-01 | Outpatient (CLI) | payer MEDICARE ==
[~2024-11-01] MED LIST changes: +DECADRON4 MG PO; +OLUMIANT2 MG PO
[2024-11-01 11:08] LABS: POTASSIUM 4.8 mmol/L (3.4-5.1)
[2024-11-01 12:32] LABS: BASO % 0.5 % (0.0-1.0); EOS # 0.3 10*3/uL (0.0-0.4); EOS % 3.6 % (1.0-4.0); HEMATOCRIT 29.3 % (37.0-47.0); MEAN CELL VOLUME 91.3 fl (81.0-99.0); MEAN CORPUSCULAR HGB 26.2 pg (27.0-31.0); MEAN CORPUSCULAR HGB CONC 28.7 g/dl (33.0-37.0); MEAN PLATELET VOLUME 9.2 fl (9.6-12.3); MONO # 0.5 10*3/uL (0.1-1.0); MONO % 6.7 % (3.0-9.0); NEUT # 5.1 10*3/uL (2.3-7.9); NEUT % 69.3 % (47.0-73.0); PLATELET COUNT AUTOMATED 270 10*3/uL (130-400); RED BLOOD COUNT 3.21 10*6/uL (4.10-5.10); RED CELL DISTRI WIDTH 18.1 % (0-14.5); WHITE BLOOD COUNT 7.3 10*3/uL (4.8-10.8)
[2024-11-01 12:54] LABS: ACT PARTIAL THROMBO TIME 26.1 SECONDS (20.0-32.1)
== END | disposition home or self-care (01) ==
LOC: LAB 10:14
PROVIDERS: Internal Medicine Cardiovascular Disease; ATTEND Nurse Practitioner Family
DX: I35.0 Nonrheumatic aortic (valve) stenosis (principal); D50.9 Iron deficiency anemia, unspecified; F50.83 Pica in adults; R06.02 Shortness of breath

== ENCOUNTER → 2024-12-28 | Outpatient (CLI) | payer MEDICARE ==
[~2024-12-28] MED LIST changes: +SODIUM CHLORIDE 0.9% 100 ML IV ONE; +SODIUM CHLORIDE 0.9% 100 ML IV SCH
[2024-12-28 10:38] VITALS: BP 131/96
[2024-12-28 11:24] VITALS: BP 153/59
[2024-12-28 11:40] VITALS: BP 130/41
[2024-12-28 12:30] VITALS: BP 144/45
[2024-12-28 13:22] VITALS: BP 145/48
[2024-12-28 14:13] LABS: BASO # 0.1 10*3/uL (0.0-0.1); BASO % 0.6 % (0.0-1.0); EOS # 0.1 10*3/uL (0.0-0.4); EOS % 1.8 % (1.0-4.0); HEMATOCRIT 32.2 % (37.0-47.0); MEAN CELL VOLUME 83.4 fl (81.0-99.0); MEAN CORPUSCULAR HGB 24.4 pg (27.0-31.0); MEAN CORPUSCULAR HGB CONC 29.2 g/dl (33.0-37.0); MONO % 12.3 % (3.0-9.0); NEUT # 5.7 10*3/uL (2.3-7.9); NEUT % 72.3 % (47.0-73.0); PLATELET COUNT AUTOMATED 289 10*3/uL (130-400); RED BLOOD COUNT 3.86 10*6/uL (4.10-5.10); RED CELL DISTRI WIDTH 18.2 % (0-14.5); WHITE BLOOD COUNT 7.9 10*3/uL (4.8-10.8)
[2024-12-28 14:15] VITALS: BP 142/48
== END | disposition home or self-care (01) ==
LOC: TRNFUSION 03:09
PROVIDERS: ATTEND Physician Assistant
DX: D64.9 Anemia, unspecified (principal); I10 Essential (primary) hypertension; E78.00 Pure hypercholesterolemia, unspecified; F41.9 Anxiety disorder, unspecified; F32.A Depression, unspecified; Z86.73 Personal history of transient ischemic attack (TIA), and cerebral infarction without residual deficits; Z95.818 Presence of other cardiac implants and grafts; Z98.890 Other specified postprocedural states; Z79.899 Other long term (current) drug therapy; Z83.3 Family history of diabetes mellitus; Z82.49 Family history of ischemic heart disease and other diseases of the circulatory system

== ENCOUNTER → 2025-06-11 | Outpatient (CLI) | payer MEDICARE ==
[~2025-06-11] MED LIST changes: +FEROSUL325 MG PO; +GLIPIZIDE XL5 M1 PO; +METOPROLOL SUCC50 M1 PO; -SODIUM CHLORIDE 0.9% 100 ML IV ONE; -SODIUM CHLORIDE 0.9% 100 ML IV SCH; +VITAMIN D250 MC1 PO; +VITAMIN E1000 UNI1 PO; +WOMEN'S 50 PLU1 EACH PO
== END | disposition home or self-care (01) ==
LOC: CARD 00:13
PROVIDERS: ATTEND Internal Medicine Cardiovascular Disease
DX: I35.1 Nonrheumatic aortic (valve) insufficiency (principal); I35.0 Nonrheumatic aortic (valve) stenosis